=== PATIENT | male | born 1950 | race Caucasian/White ===

== ENCOUNTER → 2024-12-22 | Outpatient (CLI) | payer MEDICARE, SELFPAY ==
--- NOTE | 2024-12-22 14:31 | XR_ITS ---
Examination: AP pelvis single view TECHNIQUE: AP portable supine pelvis single view Exam date and time: December 22, 2024 1448 hours INDICATIONS: Hip pain several years. FINDINGS: Severe osteopenia Old healed right hip fracture Mild to moderate narrowing hip joints bilaterally No hip or pelvic fracture IMPRESSION: Mild to moderate narrowing hip joints bilaterally
--- NOTE | 2024-12-22 14:31 | XR_ITS ---
Examination: Lumbar spine, 5 views Technique: Lumbar spine AP, lateral, coned lateral lower lumbar spine, bilateral obliques 5 views Exam date and time: December 22, 2024 1501 hours INDICATIONS: Low back pain several years. FINDINGS: Severe osteopenia Prominent lumbar spondylosis Mild chronic osteoporotic compressions L3, L2, L1 No acute lumbar fracture Moderate to advanced degenerative disc disease L4-L5, L5-S1 IMPRESSION: Severe osteopenia Mild chronic osteoporotic compressions L1, L2, L3 Moderate to advanced degenerative disc disease L4-L5, L5-S1
--- NOTE | 2024-12-22 14:31 | XR_ITS ---
EXAMINATION: Cervical spine, 5 views Technique: Cervical spine AP, AP odontoid, lateral, bilateral obliques, 5 views Exam date and time: December 22, 2024 at 1423 hours INDICATIONS: Neck pain several years. FINDINGS: Comparison May 31, 2022 Prominent osteopenia No cervical fracture Intact odontoid Advanced degenerative disc disease C6-C7 The oblique films are suboptimal IMPRESSION: Advanced degenerative disc disease C6-C7
== END | disposition home or self-care (01) ==
LOC: CDIM 14:22
PROVIDERS: Referring Provider Orthopaedic Surgery; Visit Provider Orthopaedic Surgery
DX: M25.852 Other specified joint disorders, left hip (principal); M25.851 Other specified joint disorders, right hip; M85.88 Other specified disorders of bone density and structure, other site; M81.8 Other osteoporosis without current pathological fracture; M51.360 Other intervertebral disc degeneration, lumbar region with discogenic back pain only; M51.370 Other intervertebral disc degeneration, lumbosacral region with discogenic back pain only; M50.323 Other cervical disc degeneration at C6-C7 level
CPT/HCPCS: 72050; 72110; 72170

== ENCOUNTER 2025-01-08 11:02 | Emergency (ER) | payer MEDICARE, OTHER, SELFPAY ==
[2025-01-08 11:03] VITALS: BMI 18.1
--- NOTE | 2025-01-08 11:11 | EKG_ITS ---
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
[2025-01-08 11:13] VITALS: BP 155/78; PULSE 62; RESP 19; TEMP 36.9; O2SAT 94; BMI 18.1
--- NOTE | 2025-01-08 11:42 | XR_ITS ---
Examination: Right knee 2 views Technique one AP lateral right knee 2 views Date and time: January 08, 2025 1205 hours INDICATIONS: Patient fell today with injury to the knee, knee pain. FINDINGS: No fracture or dislocation No foreign body IMPRESSION: No fracture or dislocation
--- NOTE | 2025-01-08 11:42 | XR_ITS ---
Examination: CT brain head without contrast. 2-D sagittal coronal reconstructions Date and time of exam:January 08, 2025 1149 hours Comparison November 09, 2022 INDICATIONS: Patient fell today with injury to the head, head pain CTDI: vol (mGy):66.7 DLP: (mGycm):1565 Technique: Multiple CT axial sections of the brain have been obtained, 5 mm slice thickness. Contrast has not been administered. 2-D sagittal, coronal reconstructions have been obtained Low dose protocols were performed. One or more of the following dose reduction techniques were used; automated exposure control, adjustment of the mA and/or KV according to patient size, use of iterative reconstruction technique. Findings: No significant ventricular enlargement. Intra-axial or extra-axial hemorrhage density is not seen. No mass effect or midline shift Basal cisterns are not remarkable. Fourth ventricle is midline. Cranial vault intact. Impression: Numerous artifacts degrade image quality No interval acute hemorrhage, mass effect or midline shift
--- NOTE | 2025-01-08 11:42 | XR_ITS ---
Examination:Right hip AP, lateral, AP pelvis 3 views Technique: Hip AP lateral, AP pelvis, 3 views Exam date and time:January 08, 2025 1153 hours INDICATIONS: Patient fell today with into the right hip, right hip pain. FINDINGS: Old healed right hip fracture No acute right hip fracture no hip dislocation Left hip bones of the pelvis intact IMPRESSION: No acute hip or pelvic fracture.
--- NOTE | 2025-01-08 11:44 | EDNOTE_ITS ---
ED General RME/HPI General Chief complaint: Weakness Stated complaint: CAN'T WALK & FELL ON R SIDE OF BODY TODAY Time Seen by Provider: 01/08/25 11:25 Arrival date/time: 01/08/25 11:02 RME / HPI RME / HPI narrative: 74 years old male was brought in for evaluation regarding fall. Patient sustained a ground-level fall this morning, complaining of pain to the right knee severity mild. Patient does not remember if he hit his head. Denies any fever denies any other complaints no medication was taken prior to arrival. Related Data Home Medications ?Medication ?Instructions ?Recorded ?Confirmed albuterol sulfate 90 mcg/actuation inhalation 11/05/22 aerosol inhaler gabapentin 100 mg capsule 100 mg PO 2XD 11/05/2211/07 (Neurontin) hydrocodone 5 mg-acetaminophen 325 tab 11/05/22 mg tablet paroxetine HCl 20 mg tablet mg PO 11/05/22 tamsulosin 0.4 mg capsule (Flomax) 0.4 mg PO 1XD 11/0711/07/22 Allergies Allergy/AdvReac Type Severity Reaction Status Date / Time No Known Allergies Allergy Verified 01/08/25 11:10 Review of Systems Review of Systems Narrative Review of Systems: Review of system reviewed and within normal limits except mentioned in HPI ED Exam Narrative Physical exam: VITAL SIGNS: Reviewed. GENERAL APPEARANCE: Alert and interactive, follows commands, no acute distress, HEAD AND FACE: Non-traumatic. ENT: PERRL, pale conjunctiva, eyelid no trauma, Mucous membrane moist. NECK: Supple, nontender, no nuchal rigidity. CHEST: No tenderness, no crepitus, no paradoxical movement, no retractions. LUNGS: Clear, well ventilated, symmetric, no rales, no wheezing, no ronchi, no stridor, good breath sounds bilaterally. HEART: Regular rate, regular rhythm, no murmur, no gallops. ABDOMEN: Soft, positive bowel sounds, nondistended, no guarding, nontender, no rebound, no masses, RECTAL: Deferred. GENITAL: Deferred. NEUROLOGICAL: Gross motor function intact sensory function intact, Appropriate for age. MUSCULOSKELETAL: low back nontender, full range of motion. EXTREMITIES: Right knee contusion swelling tenderness no deformity no crepitus, full range of motion. SKIN: Color pink, dry, no rash, no lacerations, no abrasions, no contusions. LYMPHATICS: Deferred. Course Quality Measures none Orders Category Date Time Status EKG (ED ONLY) *Do not use* NOW Care 01/08/25 11:[address] head/brain wo con Stat Exams 01/08/25 11:42 Completed EKG (ED Only) Stat Exams 01/08/25 11:11 Draft XR hip RT w pelvis 2-3V Stat Exams 01/08/25 11:42 Completed XR knee limited RT 2V Stat Exams 01/08/25 11:42 Completed CBC [CBC] Stat Lab 01/08/25 12:15 Completed CMP [Comprehensive Metabolic Panel] Stat Lab 01/08/25 12:15 Completed UA, C/S IF [Urinalysis, C/S if Indicated] Stat Lab 01/08/25 12:46 Completed Acetaminophen Tab [Tylenol ES Tab] Med 01/08/25 11:43 Discontinued 1,000 mg PO X1 ONE Vital Signs Vital signs: Vital Signs Temperature 98.5 F 01/08/25 11:13 Pulse Rate 62 01/08/25 11:13 Respiratory Rate 19 01/08/25 11:13 Blood Pressure 155/78 H 01/08/25 11:13 Pulse Oximetry (%) 94 L 01/08/25 11:13 Oxygen Delivery Method Room Air 01/08/25 11:13 Discharge Plan Plan Patient Disposition: HOME (Self Care) Discharge Disposition comment: stable Prescriptions/Referrals Prescriptions/Med Rec: No Action hydrocodone-acetaminophen 5-325 mg tablet Patient Comments: TAKE 1 TABLET BY MOUTH EVERY 6 HOURS NEEDED FOR LOW BACK PAIN FOR 30 DAYS paroxetine HCl 20 mg tablet PO Patient Comments: TAKE 1 TABLET BY MOUTH ONCE DAILY AT BEDTIME gabapentin [Neurontin] 100 mg capsule 100 mg PO 2XD Patient Comments: TAKE 1 CAPSULE BY MOUTH THREE TIMES DAILY FOR 30 DAYS albuterol sulfate 90 mcg/actuation HFA aerosol inhaler INHALATION Patient Comments: INHALE 1 PUFF BY MOUTH EVERY 4 HOURS NEEDED FOR SHORTNESS OF BREATH FOR WHEEZING FOR COUGH SPELLS tamsulosin [Flomax] 0.4 mg Capsule 0.4 mg PO 1XD Referrals: No Primary/Family,Physician [Primary Care Provider] - In 1 week Problem List Clinical Impression: Knee pain, Fall Patient/Caregiver Discharge Instructions Education Materials: ED RICE Additional Instructions: Thank you for the opportunity for serving you today. You are stable for discharged . You are advised to: Follow-up with your PCP in 1 to 2 days Return to ED for worsening of symptoms Increase oral fluids Take [id number] Tylenol as needed for pain Print Language: Urdu Stand Alone Forms: Arabella Award Info., Patient Portal Info Letter MOY/KATHERYN Supervising Physician SYLVIA Supervising Physician: MD Idania MDM Narrative [facility] hospital course: 74 years old male was brought in for evaluation regarding fall. Patient sustained a ground-level fall this morning, complaining of pain to the right knee severity mild. Patient does not remember if he hit his head. Denies any fever denies any other complaints no medication was taken prior to arrival. CT scan of the head came back unremarkable x-ray pelvis came back unremarkable x-ray of the knee came back unremarkable laboratory workup also came back unremarkable results discussed with the patient. Patient stable for discharge home. Labs/Rad/Tests considered, not Ordered Describe details: None Medication Administration(s) Medication Administration History Discontinued Medications Acetaminophen (Acetaminophen 500 Mg Tablet) 1,000 mg PO X1 ONE Stop: 01/08/25 11:44 Last Admin: 01/08/25 12:36 Dose: 1,000 mg Documented By: DONALD Diagnosis Differential diagnosis: Knee fracture knee sprain knee dislocation status post fall Most likely dx, and/or detailed dx discussion: Knee pain status post fall
[2025-01-08 12:28] LABS: Basophils % (Auto) 1 % (0-2.5); Eosinophils # (Auto) 0.2 Thou/mm3 (0.0-0.5); Eosinophils % (Auto) 3 % (0-10); Hematocrit 37.7 % (41.0-53.0); Hemoglobin 12.7 g/dL (13.5-16.0); Immature Granulocytes % (Auto) 0 % (0-0); Immature Granulocytes Auto 0.01 Thou/mm3 (0.00-0.00); Lymphocytes # (Auto) 1.3 Thou/mm3 (1.0-4.8); Lymphocytes % (Auto) 20 % (10-50); Mean Corpuscular HGB Conc 33.7 g/dl (31.0-37.0); Mean Corpuscular Hemoglobin 30.8 pg (25.0-35.0); Mean Corpuscular Volume 92 fL (80-100); Monocytes # (Auto) 0.6 Thou/mm3 (0.0-0.8); Monocytes % (Auto) 10 % (0-12); Neutrophils # (Auto) 4.2 Thou/mm3 (1.8-7.7); Neutrophils % (Auto) 67 % (37-80); Nucleated Red Blood Cell % 0 /100 WBC (0); Platelet Count 235 Thou/mm3 (140-440); RDW Standard Deviation 45.9 fL (35.1-43.9); Red Blood Count 4.12 Miln/mm3 (4.50-5.90); White Blood Count 6.2 Thou/mm3 (3.8-10.6)
[2025-01-08] MEDS: ACETAMINOPHEN 500 MG TABLET 1000 MG PO (12:36)
[2025-01-08 12:51] LABS: Collection Type, Urine Clean Catch
[2025-01-08 12:56] LABS: Bilirubin,Urine Negative (Negative); Blood,Urine Negative (Negative); Clarity,Urine Clear (Clear/Hazy); Color,Urine Yellow (Lt Yel-Yel); Culture Indicated,Urine Not Indicated; Glucose, Urine Negative (Negative); Ketones,Urine Negative (Negative); Leukocyte Esterase,Urine Negative (Negative); Nitrite,Urine Negative (Negative); PH,Urine 6.5 (5.0-7.0); Protein,Urine Negative (Neg - Trace); RBC,Urine 2 /hpf (0-3); Specific Gravity,Urine 1.019 (1.001-1.035); Squamous Epithelial Cell,Urine < 1 /hpf (0-5); WBC,Urine 2 /hpf (0-5)
[2025-01-08 13:01] LABS: Alanine Aminotransferase < 7 U/L (10-49); Albumin, Serum 3.9 gm/dL (3.4-4.8); Albumin/Globulin Ratio 1.4 (1.2-2.2); Alkaline Phosphatase 84 U/L (46-116); Anion Gap 6 (7-16); Aspartate Amino Transferase 12 U/L (0-34); BUN/Creatinine Ratio 11 Ratio (12-20); Bilirubin,Total 1.1 mg/dL (0.3-1.2); Blood Urea Nitrogen 10 mg/dL (9-23); Calcium 8.5 mg/dL (8.3-10.6); Calcium (Corrected) 8.6 mg/dL (8.5-10.1); Carbon Dioxide 32.9 mMol/L (20.0-31.0); Chloride 105 mMol/L (98-107); Creatinine (Component) 0.9 mg/dL (0.6-1.3); Globulin 2.7 gm/dL (2.3-3.5); Glucose 89 mg/dL (74-106); Osmolality,Calculated 284 (275-295); Sodium 144 mMol/L (136-145); Total Protein 6.6 gm/dL (5.7-8.2); eGFR > 60 See Note
== END 2025-01-08 14:00 | disposition home or self-care (01) ==
PROVIDERS: Nurse Practitioner Family; Emergency Provider Family Medicine
DX: S89.91XA Unspecified injury of right lower leg, initial encounter (principal); S09.90XA Unspecified injury of head, initial encounter; M25.551 Pain in right hip; R00.1 Bradycardia, unspecified; I49.1 Atrial premature depolarization; W18.30XA Fall on same level, unspecified, initial encounter
CPT/HCPCS: 36415; 70450; 73502; 73560; 80053; 81001; 85025; 93005; 99284; A9270

== ENCOUNTER 2025-01-17 02:07 | Inpatient (IN) | payer OTHER, MEDICARE, SELFPAY ==
[2025-01-17] VITALS (21 sets, daily range): BP systolic 132–178; BP diastolic 72–108; PULSE 68–85; RESP 7–88; TEMP 36.5–37.1; O2SAT 89–99; BMI 16.9; BMI 18.9
--- NOTE | 2025-01-17 02:25 | XR_ITS ---
Examination: CT lumbar spine, without contrast. 2-D sagittal reconstructions. 2-D coronal reconstructions. 3-D reconstructions. Date and time of exam: January 17, 2025 0401 hours INDICATIONS: Onset generalized back pain this week CTDI: vol (mGy):21 DLP: (mGycm):625 Technique: Multiple 1.25 mm axial sections of the lumbar spine without intravenous contrast have been obtained. 2-D sagittal and coronal reconstructions have been obtained. 3-D reconstructions have been obtained. Low dose protocols were performed. One or more of the following dose reduction techniques were used; automated exposure control, adjustment of the mA and/or KV according to patient size, use of iterative reconstruction technique. Findings: Severe osteopenia No acute lumbar fracture Chronic osteoporotic wedging L3, L4 Lumbar pedicles, laminae, transverse and posterior spinous processes intact Grade 1 spondylolisthesis L5 on S1 with advanced instrument posteriorly at the L5-S1 level L5-S1 grade 1 spondylolisthesis produces severe left and mild right L5 ganglionic compression L4-L5 3 mm central lumbar disc bulge More cephalad levels unremarkable IMPRESSION: Severe osteopenia Chronic osteoporotic wedging L3, L4 Advanced degenerative disc disease L5-S1 L5-S1 grade 1 spondylolisthesis producing severe left and mild right L5 ganglionic compression L4-L5 3 mm central lumbar disc bulge
--- NOTE | 2025-01-17 02:25 | XR_ITS ---
Examination: CT thoracic spine, without contrast. 2-D sagittal reconstructions. 2-D coronal reconstructions. 3-D reconstructions. Date and time of exam:January 17, 2025 0401 hours INDICATIONS: Back pain this week CTDI: vol (mGy):21 DLP: (mGycm):833 Technique: Multiple 1.25 mm axial sections of the thoracic spine without intravenous contrast have been obtained. 2-D sagittal and coronal reconstructions have been obtained. 3-D reconstructions have been obtained. Low dose protocols were performed. One or more of the following dose reduction techniques were used; automated exposure control, adjustment of the mA and/or KV according to patient size, use of iterative reconstruction technique. Findings: Severe osteopenia No acute thoracic fracture Mild diffuse thoracic disc narrowing Thoracic pedicles, laminae, transverse and posterior spinous processes intact IMPRESSION: No acute thoracic fracture. Mild diffuse thoracic degenerative disc disease
--- NOTE | 2025-01-17 02:25 | XR_ITS ---
Examination: CT brain head without contrast. 2-D sagittal coronal reconstructions Date and time of exam:January 17, 2025 at 0353 hours INDICATIONS: Altered mental status today COMPARISON: January 08, 2025 CTDI: vol (mGy):80 DLP: (mGycm):427 Technique: Multiple CT axial sections of the brain have been obtained, 5 mm slice thickness. Contrast has not been administered. 2-D sagittal, coronal reconstructions have been obtained Low dose protocols were performed. One or more of the following dose reduction techniques were used; automated exposure control, adjustment of the mA and/or KV according to patient size, use of iterative reconstruction technique. Findings: No significant ventricular enlargement. Intra-axial or extra-axial hemorrhage density is not seen. No mass effect or midline shift Basal cisterns are not remarkable. Fourth ventricle is midline. Cranial vault intact. Significant ethmoid sinusitis Impression: Negative for acute hemorrhage, mass effect or midline shift Advise clinical correlation follow up accordingly
--- NOTE | 2025-01-17 02:25 | PD.EDBACK ---
ED Back Injury Pain RME/HPI General Chief Complaint: Back Pain/Injury Stated Complaint: LOWER BACK HIP PAIN Time Seen by Provider: 01/17/25 02:24 Arrival date/time: 01/17/25 02:07 RME / HPI RME / HPI Narrative: This section includes all my notes and documentations, including HPI, PE, and ED course. Simon Burns MD HPI: 74 y/o male with Hx of Dementia here with severe back pain. Can't obtain any history from the patient due to severe dementia. ROS: Patient obtain from the patient due to severe dementia. Physical Exam: General: Alert. In severe pain, yelling that his back hurts. Eyes: Conjunctivae and lids clear. ENT: No nasal congestion. Neck: Supple. Heart: RRR. Lungs: No respiratory distress. Good air movement. No significant rhonchi, wheezing, rales. Abdomen: Soft with equivocal tenderness, difficult to localize. Yells in pain with any palpation or movement. Normal bowel sounds. No distension. No rebound or guarding. Back: Yells in pain with any palpation or movement. Suboptimal exam. Skin: Warm and dry. Neuro: Alert and oriented X 1. No obvious peripheral motor deficits. I reviewed EMS notes. I reviewed diagnostic test results: Blood test unremarkable. CT reports pending. Treatment here included: Dilaudid, Zofran, IV fluid. Obvious significant improvement noted. At 6 AM on 01/17/2025, the care of the patient was transferred to Dr Osuna. Simon Burns MD Related Data Home Medications ?Medication ?Instructions ?Recorded ?Confirmed albuterol sulfate 90 mcg/actuation inhalation 11/05/22 aerosol inhaler gabapentin 100 mg capsule 100 mg PO 2XD 11/05/22 11/07/22 (Neurontin) hydrocodone 5 mg-acetaminophen 325 tab 11/05/22 mg tablet paroxetine HCl 20 mg tablet mg PO 11/05/22 tamsulosin 0.4 mg capsule (Flomax) 0.4 mg PO 1XD 11/07/22 11/07/22 Allergies Allergy/AdvReac Type Severity Reaction Status Date / Time No Known Allergies Allergy Verified 01/17/25 02:09 Review of Systems Review of Systems ROS Unobtainable: unobtainable due to medical condition (Dementia) Past Medical History Past Medical History NEUROLOGIC: Positive Dementia Social History SMOKING STATUS: Current some day smoker ED Exam Narrative Physical exam: Refer to HPI above Course Quality Measures none Orders Category Date Time Status Saline [Insert IV] NOW Care 01/17/25 02:[address] chest abdomen pelvis wo Stat Exams 01/17/25 02:[address] head/brain wo con Stat Exams 01/17/25 02:[address] lumbar spine wo con Stat Exams 01/17/25 02:[address] thoracic spine wo con Stat Exams 01/17/25 02:25 Taken Amylase Stat Lab 01/17/25 02:28 Completed Bilirubin,Direct Stat Lab 01/17/25 02:28 Completed CBC Stat Lab 01/17/25 02:28 Completed CMP [Comprehensive Metabolic Panel] Stat Lab 01/17/25 02:28 Completed Free T4 (Free Thyroxine) Stat Lab 01/17/25 02:28 Completed Lipase Stat Lab 01/17/25 02:28 Completed Magnesium Stat Lab 01/17/25 02:28 Completed TSH [Thyroid Stimulating Hormone] Stat Lab 01/17/25 02:28 Completed HYDROmorphone INJ [Dilaudid Inj] Med 01/17/25 02:25 Discontinued 1 mg IVP X1 ONE Ondansetron Inj [Zofran Inj] Med 01/17/25 02:25 Discontinued 4 mg IVP X1 ONE Sodium Chloride 0.9% 1000 ml [Ns] 1,000 ml Med 01/17/25 02:25 Discontinued IV 999 mls/hr Vital Signs Vital signs: Vital Signs Temperature 98.2 F 01/17/25 02:15 Pulse Rate 68 01/17/25 02:15 Respiratory Rate 19 01/17/25 02:15 Blood Pressure 178/96 H 01/17/25 02:15 Pulse Oximetry (%) 91 L 01/17/25 02:15 Oxygen Delivery Method Room Air 01/17/25 02:15 Back Pain / Injury MDM Narrative MDM Narrative:: Scribe Attestation: Shadia Ledezma am scribing for and in the presence of Dr. Burns. Provider Notation: Although this document has been carefully reviewed, there may still be some phonetic and other typographical errors.? These errors are purely grammatical due to imperfections in the software program and should not be construed in any way to? compromise the substance of the patient's medical care during this visit. 74 y/o male with Hx of Dementia here with severe back pain. Can't obtain any history from the patient due to severe dementia. Patient data External records reviewed:: [facility] previous records (Reviewed prior ED records from 01/08/25. Patient was seen for Fall.) and EMS form Clinical information provided by:: EMS Social determinants that could affect healthcare access:: mental health (Dementia) Patient has the following chronic illnesses:: Dementia How is presenting disease/condition affected by chronic disease/condition?: uneffected by Evaluation data The following diagnostics were reviewed and interpreted by me:: lab results and radiology exam(s) Lab and/or radiology exams considered but not ordered:: None Interpretation Summary: Blood tests unremarkable. CT reports pending. Medications / Prescriptions Medications or Prescriptions considered but not ordered:: None Medication administrations:: Medication Administration History Discontinued Medications Hydromorphone HCl (Hydromorphone Inj 2 Mg/Ml Vial) 1 mg IVP X1 ONE Stop: 01/17/25 02:26 Last Admin: 01/17/25 03:02 Dose: 1 mg Documented By: TETO Sodium Chloride (Ns) 1,000 mls @ 999 mls/hr IV .Q1H1M ONE Stop: 01/17/25 03:25 Last Infusion: 01/17/25 05:26 Dose: Infused Documented By: Admin: 01/17/25 03:03 Dose: 999 mls/hr Documented By: TETO Ondansetron HCl (Ondansetron Inj 2 Mg/Ml Inj 2 Ml) 4 mg IVP X1 ONE; Protocol Stop: 01/17/25 02:26 Last Admin: 01/17/25 03:01 Dose: 4 mg Documented By: TETO Dilaudid, Zofran, IV fluid. Consultations Consultation(s) initiated? (list below): No Diagnosis Differential diagnosis back pain/injury: lumbar radiculopathy, sciatica, strain of lumbar region, renal colic, pyelonephritis, thoracic back pain, AAA and discitis Most likely diagnosis given after review of the tests above:: Complete diagnostic test results are pending. Admission Indicated Admission indicated?: not indicated Explain why admission is indicated or not indicated:: Complete diagnostic test results are pending. Admission Request Was there a request for admission?: No Disposition Plan Disposition Plan: other (specify) (Care of the patient was transferred to Dr Osuna.) Discharge Plan Prescriptions/Referrals Prescriptions/Med Rec: No Action hydrocodone-acetaminophen 5-325 mg tablet Patient Comments: TAKE 1 TABLET BY MOUTH EVERY 6 HOURS NEEDED FOR LOW BACK PAIN FOR 30 DAYS paroxetine HCl 20 mg tablet PO Patient Comments: TAKE 1 TABLET BY MOUTH ONCE DAILY AT BEDTIME gabapentin [Neurontin] 100 mg capsule 100 mg PO 2XD Patient Comments: TAKE 1 CAPSULE BY MOUTH THREE TIMES DAILY FOR 30 DAYS albuterol sulfate 90 mcg/actuation HFA aerosol inhaler INHALATION Patient Comments: INHALE 1 PUFF BY MOUTH EVERY 4 HOURS NEEDED FOR SHORTNESS OF BREATH FOR WHEEZING FOR COUGH SPELLS tamsulosin [Flomax] 0.4 mg Capsule 0.4 mg PO 1XD Referrals: Gonzalez Zuniga MD [Primary Care Provider] - In 1 week Problem List Clinical Impression: Back pain Patient/Caregiver Discharge Instructions Print Language: German
--- NOTE | 2025-01-17 02:26 | XR_ITS ---
Examination: CT chest, without intravenous contrast. CT abdomen, without intravenous contrast. CT pelvis, without intravenous contrast. 2-D sagittal and coronal reconstructions. 3-D reconstructions. Date and time of exam:January 17, 2025 0356 hours INDICATIONS: Chest and abdominal pain today CTDI vol (mgy) 5 DLP (MGycm)421 Technique: Multiple CT images, 3.0 mm slice thickness, obtained chest, abdomen, pelvis, with the high-resolution 64 slice scanner.. Sagittal and coronal 2-D reconstructions are obtained. 3-D reconstructions Low dose protocols were performed. One or more of the following dose reduction techniques were used; automated exposure control, adjustment of the mA and/or KV according to patient size, use of iterative reconstruction technique. Findings: No thoracic aortic aneurysmal dilatation Main pulmonary artery segment 35 mm Mild enlargement left atrium and left ventricle No paratracheal tracheobronchial or bronchopulmonary adenopathy Mild vascular congestion Pneumonia both bases, mild with small pleural effusions 12 mm right lobe liver cyst Gallstones Splenic calcifications No pancreatic or adrenal mass Moderate renal parenchymal scar formation Mediolateral dimension of the abdominal aorta 2.7 cm No bowel obstruction No pericecal inflammatory change Right inguinal hernia containing colon but no incarcerated bowel Left inguinal hernia containing small bowel but no incarcerated bowel Prostatomegaly 5.6 cm Urinary bladder wall thickening up to 8 mm Severe osteopenia IMPRESSION: Pulmonary artery hypertension Mild bibasilar pneumonia Moderate renal parenchymal scar formation Right inguinal hernia containing colon but no incarcerated bowel Left inguinal hernia containing small bowel but no incarcerated bowel Negative for bowel obstruction Significant prostatomegaly Urinary bladder wall thickening up to 8 mm, consider cystitis, early urinary tract outflow obstruction secondary to the prostatomegaly
--- NOTE | 2025-01-17 03:00 | PC.NURSE ---
Pt BIBA with c/o Right lower back pain, pt rates pain 8/10 at this time, pt is A/O x 2, pt is noted to have limited movement to R leg due to pain, per patient 's the pt had a ground level fall on his right side within the past week.
[2025-01-17] MEDS: ONDANSETRON INJ 2 MG/ML INJ 2 ML 4 MG IVP (03:01)
[2025-01-17] MEDS: HYDROmorphone INJ 2 MG/ML VIAL 1 MG IVP (03:02)
[2025-01-17] MEDS: SODIUM CHLORIDE 0.9% 1000 ML 1,000 ML 999 ML IV (03:03)
[2025-01-17 03:27] LABS: Basophils # (Auto) 0.1 Thou/mm3 (0.0-0.2); Basophils % (Auto) 1 % (0-2.5); Eosinophils # (Auto) 0.2 Thou/mm3 (0.0-0.5); Eosinophils % (Auto) 3 % (0-10); Hematocrit 38.6 % (41.0-53.0); Immature Granulocytes % (Auto) 0 % (0-0); Immature Granulocytes Auto 0.02 Thou/mm3 (0.00-0.00); Lymphocytes # (Auto) 1.4 Thou/mm3 (1.0-4.8); Lymphocytes % (Auto) 17 % (10-50); Mean Corpuscular HGB Conc 33.7 g/dl (31.0-37.0); Mean Corpuscular Hemoglobin 31.6 pg (25.0-35.0); Mean Corpuscular Volume 94 fL (80-100); Monocytes # (Auto) 0.7 Thou/mm3 (0.0-0.8); Monocytes % (Auto) 8 % (0-12); Neutrophils # (Auto) 5.8 Thou/mm3 (1.8-7.7); Neutrophils % (Auto) 72 % (37-80); Nucleated Red Blood Cell % 0 /100 WBC (0); Platelet Count 254 Thou/mm3 (140-440); RDW Standard Deviation 45.3 fL (35.1-43.9); Red Blood Count 4.12 Miln/mm3 (4.50-5.90); White Blood Count 8.1 Thou/mm3 (3.8-10.6)
[2025-01-17 04:01] LABS: Alanine Aminotransferase < 7 U/L (10-49); Albumin, Serum 3.9 gm/dL (3.4-4.8); Albumin/Globulin Ratio 1.6 (1.2-2.2); Alkaline Phosphatase 87 U/L (46-116); Amylase < 20 U/L (30-118); Anion Gap 10 (7-16); Aspartate Amino Transferase 11 U/L (0-34); BUN/Creatinine Ratio 12 Ratio (12-20); Bilirubin,Direct 0.5 mg/dL (0.0-0.3); Bilirubin,Total 1.3 mg/dL (0.3-1.2); Blood Urea Nitrogen 11 mg/dL (9-23); Calcium 8.6 mg/dL (8.3-10.6); Calcium (Corrected) 8.7 mg/dL (8.5-10.1); Carbon Dioxide 30.5 mMol/L (20.0-31.0); Chloride 105 mMol/L (98-107); Creatinine (Component) 0.9 mg/dL (0.6-1.3); Free T4 (Free Thyroxine) 1.32 ng/dL (0.89-1.76); Globulin 2.4 gm/dL (2.3-3.5); Glucose 99 mg/dL (74-106); Lipase 26 U/L (12-53); Magnesium 1.8 mg/dL (1.6-2.6); Osmolality,Calculated 288 (275-295); Potassium 3.8 mMol/L (3.4-5.1); Sodium 145 mMol/L (136-145); Thyroid Stimulating Hormone 2.36 uIU/mL (0.55-4.78); Total Protein 6.3 gm/dL (5.7-8.2); eGFR > 60 See Note
--- NOTE | 2025-01-17 06:32 | PD.EDADDENDU ---
Emergency Room Addendum Addendum Narrative: 0600: Care assumed by previous shift provider. Past medical, surgical, social and family history reviewed. Vitals and home medications reviewed. Results and treatment plan discussed. I will assume the care of the patient at this time and will follow the patient, pending final disposition.
--- NOTE | 2025-01-17 07:00 | PC.NURSE ---
PT ON OXYGEN UPON ARRIVAL TO UNIT
[2025-01-17 08:46] LABS: Collection Type, Urine Clean Catch
[2025-01-17 09:03] LABS: Bilirubin,Urine Negative (Negative); Blood,Urine Negative (Negative); Clarity,Urine Clear (Clear/Hazy); Color,Urine Yellow (Lt Yel-Yel); Glucose, Urine Negative (Negative); Ketones,Urine 1+ (Negative); Leukocyte Esterase,Urine Negative (Negative); Nitrite,Urine Negative (Negative); PH,Urine 6.5 (5.0-7.0); Protein,Urine Negative (Neg - Trace); RBC,Urine 5 /hpf (0-3); Squamous Epithelial Cell,Urine < 1 /hpf (0-5); Urobilinogen,Urine Negative mg/dL (0.0-1.0); WBC,Urine < 1 /hpf (0-5)
[2025-01-17 09:06] LABS: Sperm,Urine Present
[2025-01-17] MEDS: HYDROcodone/APAP 5/325 TABLET 1 TAB PO (10:15)
[2025-01-17] MEDS: DOXYCYCLINE 100 MG TABLET PO (11:15)
[2025-01-17] MEDS: cefTRIAXone/D5w 1gm IV premix 1 GM/50 ML BAG IV (11:15)
--- NOTE | 2025-01-17 11:18 | PD.EDADDENDU ---
Emergency Room Addendum Addendum Narrative: 0600: Care assumed by previous shift provider. Past medical, surgical, social and family history reviewed. Vitals and home medications reviewed. Results and treatment plan discussed. I will assume the care of the patient at this time and will follow the patient, pending final disposition. 1000: Patient evaluated for ongoing low back pain, reportedly present since prior hip injury. Spoke with patient's , who confirms that the pain has remained unchanged. Patient followed by ortho Dr. Munoz and has not been prescribed pain medications. Pain is currently limiting mobility; patient is normally ambulatory with a walker but is now unable to get out of bed due to discomfort. While MRI follow-up is in place with Dr. Munoz, is concerned he may be unable to cooperative due to pain. Plan to discharge with a low-dose pain regimen and Colace for chronic constipation. 1045: I again spoke with the patients . Reports he has hx of a chronic cough related to COPD, which may have worsened over the past two weeks though questionable. No fever, new cough, or shortness of breath reported. Patient continues to smoke and expressed interest in smoking cessation. During ED course, the patients oxygen saturations have been as long as low as 84?85% with a good waveform, on room air. Improving to 87?88%. On 0.5L nasal cannula, saturation 92-94%. Chest/abdomen/pelvis CT shows bibasilar pneumonia. Rocephin and Doxycycline orderd. EMR was reviewed which shows similar O2 sats during prior hospitalization for hip fracture in 2022. O2 sats were as low as 88% and remained around 90?91% during admission. Unknown whether patient has ever been formally placed on [facility]. expressed and is leaning towards shelter placement. Will consult with ED physician locums urgent care. design coordinator reports the [facility] would [facility] placement but may require admission. 1300: I spoke with resident working with [facility]. Discussed patients PMHx, HPI, ED course, exam findings, labs, and radiology results. Patient accepted for admission. Diagnosis: Hypoxia, pneumonia, chronic low back pain Disposition: Admission RADIOLOGY Ordering Physician: Simon Burns MD Date of Service: 01/17/25 Procedure(s): CT head/brain wo con Accession Number(s): [id number] cc: Simon Burns MD; Shabbir Ching MD; Gonzalez Zuniga MD~ Examination: CT brain head without contrast. 2-D sagittal coronal reconstructions Date and time of exam:January 17, 2025 at 0353 hours INDICATIONS: Altered mental status today COMPARISON: January 08, 2025 CTDI: vol (mGy):80 DLP: (mGycm):427 Technique: Multiple CT axial sections of the brain have been obtained, 5 mm slice thickness. Contrast has not been administered. 2-D sagittal, coronal reconstructions have been obtained Low dose protocols were performed. One or more of the following dose reduction techniques were used; automated exposure control, adjustment of the mA and/or KV according to patient size, use of iterative reconstruction technique. Findings: No significant ventricular enlargement. Intra-axial or extra-axial hemorrhage density is not seen. No mass effect or midline shift Basal cisterns are not remarkable. Fourth ventricle is midline. Cranial vault intact. Significant ethmoid sinusitis Impression: Negative for acute hemorrhage, mass effect or midline shift Advise clinical correlation follow up accordingly Dictated By:Shabbir Ching MD Signed By:<Electronically signed by Shabbir Ching MD in OV>01/17/25 0752 Ordering Physician: Simon Burns MD Date of Service: 01/17/25 Procedure(s): CT lumbar spine wo con Accession Number(s): [id number] cc: Simon Burns MD; Shabbir Ching MD; Gonzalez Zuniga MD~ Examination: CT lumbar spine, without contrast. 2-D sagittal reconstructions. 2-D coronal reconstructions. 3-D reconstructions. Date and time of exam: January 17, 2025 0401 hours INDICATIONS: Onset generalized back pain this week CTDI: vol (mGy):21 DLP: (mGycm):625 Technique: Multiple 1.25 mm axial sections of the lumbar spine without intravenous contrast have been obtained. 2-D sagittal and coronal reconstructions have been obtained. 3-D reconstructions have been obtained. Low dose protocols were performed. One or more of the following dose reduction techniques were used; automated exposure control, adjustment of the mA and/or KV according to patient size, use of iterative reconstruction technique. Findings: Severe osteopenia No acute lumbar fracture Chronic osteoporotic wedging L3, L4 Lumbar pedicles, laminae, transverse and posterior spinous processes intact Grade 1 spondylolisthesis L5 on S1 with advanced instrument posteriorly at the L5-S1 level L5-S1 grade 1 spondylolisthesis produces severe left and mild right L5 ganglionic compression L4-L5 3 mm central lumbar disc bulge More cephalad levels unremarkable IMPRESSION: Severe osteopenia Chronic osteoporotic wedging L3, L4 Advanced degenerative disc disease L5-S1 L5-S1 grade 1 spondylolisthesis producing severe left and mild right L5 ganglionic compression L4-L5 3 mm central lumbar disc bulge Dictated By:Shabbir Ching MD Signed By:<Electronically signed by Shabbir Ching MD in OV>01/17/25 0801 Ordering Physician: Simon Burns MD Date of Service: 01/17/25 Procedure(s): CT thoracic spine wo [facility] Accession Number(s): [id number] cc: Simon Burns MD; Shabbir Ching MD; Gonzalez Zuniga MD~ Examination: CT thoracic spine, without contrast. 2-D sagittal reconstructions. 2-D coronal reconstructions. 3-D reconstructions. Date and time of exam:January 17, 2025 0401 hours INDICATIONS: Back pain this week CTDI: vol (mGy):21 DLP: (mGycm):833 Technique: Multiple 1.25 mm axial sections of the thoracic spine without intravenous contrast have been obtained. 2-D sagittal and coronal reconstructions have been obtained. 3-D reconstructions have been obtained. Low dose protocols were performed. One or more of the following dose reduction techniques were used; automated exposure control, adjustment of the mA and/or KV according to patient size, use of iterative reconstruction technique. Findings: Severe osteopenia No acute thoracic fracture Mild diffuse thoracic disc narrowing Thoracic pedicles, laminae, transverse and posterior spinous processes intact IMPRESSION: No acute thoracic fracture. Mild diffuse thoracic degenerative disc disease Dictated By:Shabbir Ching MD Signed By:<Electronically signed by Shabbir Ching MD in OV>01/17/25 0758 Ordering Physician: Simon Burns MD Date of Service: 01/17/25 Procedure(s): CT chest abdomen pelvis wo Accession Number(s): [id number] cc: Simon Burns MD; Shabbir Ching MD; Gonzalez Zuniga MD~ Examination: CT chest, without intravenous contrast. CT abdomen, without intravenous contrast. CT pelvis, without intravenous contrast. 2-D sagittal and coronal reconstructions. 3-D reconstructions. Date and time of exam:January 17, 2025 0356 hours INDICATIONS: Chest and abdominal pain today CTDI vol (mgy) 5 DLP (MGycm)421 Technique: Multiple CT images, 3.0 mm slice thickness, obtained chest, abdomen, pelvis, with the high-resolution 64 slice scanner.. Sagittal and coronal 2-D reconstructions are obtained. 3-D reconstructions Low dose protocols were performed. One or more of the following dose reduction techniques were used; automated exposure control, adjustment of the mA and/or KV according to patient size, use of iterative reconstruction technique. Findings: No thoracic aortic aneurysmal dilatation Main pulmonary artery segment 35 mm Mild enlargement left atrium and left ventricle No paratracheal tracheobronchial or bronchopulmonary adenopathy Mild vascular congestion Pneumonia both bases, mild with small pleural effusions 12 mm right lobe liver cyst Gallstones Splenic calcifications No pancreatic or adrenal mass Moderate renal parenchymal scar formation Mediolateral dimension of the abdominal aorta 2.7 cm No bowel obstruction No pericecal inflammatory change Right inguinal hernia containing colon but no incarcerated bowel Left inguinal hernia containing small bowel but no incarcerated bowel Prostatomegaly 5.6 cm Urinary bladder wall thickening up to 8 mm Severe osteopenia IMPRESSION: Pulmonary artery hypertension Mild bibasilar pneumonia Moderate renal parenchymal scar formation Right inguinal hernia containing colon but no incarcerated bowel Left inguinal hernia containing small bowel but no incarcerated bowel Negative for bowel obstruction Significant prostatomegaly Urinary bladder wall thickening up to 8 mm, consider cystitis, early urinary tract outflow obstruction secondary to the prostatomegaly Dictated By:Shabbir Ching MD Signed By:<Electronically signed by Shabbir Ching MD in OV>01/17/25 0756
--- NOTE | 2025-01-17 12:05 | PC.CC ---
ED Security Incident Response Engineer contacted [facility] in efforts to coordinate insurance for possible admission. [employer] Control Chain Builder received notification ID # [id number] confirmation received from Raffy Torrez
[2025-01-17] MEDS: HEPARIN SOD INJ 5000 UNIT/ML VIAL SC ×2 (14:11→21:34)
--- NOTE | 2025-01-17 17:00 | ESHP_ITS ---
<Statement entered by Celeste Edwards MD - 01/19/25 02:17> Patient was seen and examined by me personally. I have directly supervised and reviewed documentation by the team resident and agree with its findings with any exceptions or additional findings as below. Plan of care was discussed with the attending, Dr. Alves. New admit today. Chris Zavala is a 74-year-old male with past medical history of hypertension, hyperlipidemia, COPD, PTSD, history of DVT in the right lower extremity and history of right hip surgery in 2022 who was brought in by ambulance on 01/17/2025 due to severe back pain for the past 3 days. Patient unable to give any meaningful history, A&O x2. who was contacted reports patient is at baseline mental status, but did have recent ground level falls and appeared weaker. ED workup which had included CT head, lumbar, thoracic, and chest/abdomen/pelvis did not show any pathologic fractures. Labs and vitals were stable, however had apparently been expressing inability to take the patient home. Patient was also expressing severe pain upon passive movement of his legs, likely acute on chronic advanced degenerative disc disease, and spinal stenosis and ganglionic compression as evidenced by the imaging. Patient was admitted and will be evaluated by PT for recommendations on possible placement versus return home with home health, as well as administration of IV pain control medications. Celeste Edwards, PGY-2 Documentation for date of: 01/17/25 HPI History of Present Illness History of present illness: Due to patient's altered mental status unable to obtain any history and patient does not have any caretakers or family members at bedside. Mr. Zavala is a 74-year-old male with past medical history significant for hypertension, hyperlipidemia, COPD, PTSD, history of DVT in the right lower extremity and history of right hip surgery in 2022 was brought in by ambulance due to severe back pain for the past 3 days. Majority of history is obtained from ED physician who interacted with patient's at bedside who also appears to be poor historian. Patient is only oriented to self he is able to recall his full name but is unable to remember his birthday where he is, what year it is, and cannot recall his 's name. Patient's was later contacted via phone to obtain further history who stated patient had a fall approximately 1 week ago on his right hip and hit his head. He was initially brought to the ED after the fall and CT scan showed no acute hemorrhage and imaging of the right hip showed no fracture. Over the course of several days after his fall a week ago patient progressively had worsening back pain and became bedbound and unable to move for the past 3 days. Patient follows orthopedic surgeon Dr. Munoz outpatient however and patient are unable to provide further information on what is pending. Although patient has long history of smoking and COPD he uses 2 inhalers at home does not use any home oxygen he has had a chronic due to COPD which has not worsened. Patient denies any chest pain palpitations or dizziness. Patient also denies any abdominal pain but continues to complain of severe back pain worse on the lateral right side. Patient's states he has had no difficulty having bowel movement or urination and denies any incontinence. ED course In the ED blood pressure was 178/96, pulse 68, respirations 19, saturating on room air Lab findings are within normal limits with the exception of total bilirubin of 1.3, direct bilirubin 0.5 Urinalysis is negative with the exception of urine RBC [address] of head: Negative for acute hemorrhage, mass effect or midline shift CT of lumbar spine: Severe osteopenia, Chronic osteoporotic wedging L3, L4, Advanced degenerative disc disease L5-S1, L5-S1 grade 1 spondylolisthesis producing severe left and mild right L5, ganglionic compression, L4-L5 3 mm central lumbar disc bulge CT thoracic spine: No acute thoracic fracture. Mild diffuse thoracic degenerative disc disease. CT chest/abdomen/pelvis: Pulmonary artery hypertension Mild bibasilar pneumonia Moderate renal parenchymal scar formation Right inguinal hernia containing colon but no incarcerated bowel Left inguinal hernia containing small bowel but no incarcerated bowel Negative for bowel obstruction Significant prostatomegaly Urinary bladder wall thickening up to 8 mm, consider cystitis, early urinary tract outflow obstruction secondary to the prostatomegaly In the ED patient received Dilaudid 1 mg x 1, hydroxycodone x 1, doxycycline 100 mg p.o. x 1, ceftriaxone 1 g x 1 PMH: Hypertension, hyperlipidemia, COPD, history of DVT, PTSD PSH: Right hip surgery in 2022 SH: Patient smokes half a pack of cigarette daily since the age of 11, denies alcohol or illicit drug use Home meds: Lisinopril, lovastatin, albuterol inhaler (Med rec pending for the remainder of medications) Review of Systems Review of Systems Systems Reviewed: All systems reviewed, normal except as documented Exam Vital Signs Temp Pulse Resp BP Pulse Ox O2 Del Method O2 Flow Rate 98.7 F 74 18 148/86 H 95 Nasal Cannula 2 01/17/25 14:58 01/17/25 15:39 01/17/25 15:39 01/17/25 14:58 01/17/25 15:39 01/17/25 14:58 01/17/25 15:39 Narrative Exam GENERAL: A&Ox1 . elderly male, Awake, saturating on room air NEURO: unable to asses due to pt's mentation HEENT: Atraumatic, Normocephalic. mucous membranes moist. Eyes open, symmetrical, & clear HEART: Normal Heart Sounds LUNGS: Clear to auscultation with no wheezing or crackles. ABDOMEN: soft, non-distended, non-tender, bowel sounds heard, no guarding or rebound tenderness SKIN: No Rash or ecchymoses EXTREMITIES: No edema, tenderness is present on palpation on right hip area, able to move all 4 extremities, pedal pulses palpated Results: Labs 01/19/25 04:50 01/19/25 04:50 Labs: Short CBC 01/17/25 Range/Units 02:28 WBC 8.1 (3.8-10.6) Thou/mm3 Hgb 13.0 L (13.5-16.0) g/dL Hct 38.6 L (41.0-53.0) % Plt Count 254 (140-440) Thou/mm3 BMP 01/17/25 02:28 Sodium 145 Potassium 3.8 Chloride 105 Carbon Dioxide 30.5 BUN 11 Creatinine 0.9 Glucose 99 Calcium 8.6 Liver Function 01/17/25 Range/Units 02:28 Total Bilirubin 1.3 H (0.3-1.2) mg/dL Direct Bilirubin 0.5 H (0.0-0.3) mg/dL AST 11 (0-34) U/L ALT < 7 L (10-49) U/L Alkaline Phosphatase 87 (46-116) U/L Albumin 3.9 (3.4-4.8) gm/dL Urine 01/17/25 Range/Units 08:11 Urine Color Yellow (Lt Yel-Yel) Urine Clarity Clear (Clear/Hazy) Urine pH 6.5 (5.0-7.0) Ur Specific [place]eda 1.020 (1.001-1.035) Urine Protein Negative (Neg - Trace) Urine Glucose (UA) Negative (Negative) Quality Measures Quality Measures none Advance care planning discussed with:: spouse Medications Home Medications and Allergies Home Medications ?Medication ?Instructions ?Recorded ?Confirmed ?Type albuterol sulfate 90 mcg/actuation 2 puff inhalation Q 6H PRN 11/05/22 01/17/25 History aerosol inhaler shortness of breath or wheez ing apixaban 5 mg tablet 5 mg PO BID 01/17/25 5 History Held on 01/19/25. Instructions: Resume on 02/02/25. Pt has history of provoked DVT and has completed anticoagulation for more than 6 months. Will hold until Pt sees his primary care for further decision on resuming it. fluorouracil 5 % topical cream 1 applic topical BID 01/17/25 History (Efudex) lisinopril 5 mg tablet 5 mg PO QDAY 01/17/25 History rosuvastatin 5 mg tablet (Crestor) 5 mg PO QDAY 01/17/25 History tiotropium 2.5 mcg-olodaterol 2.5 2 puff inhalation QD AY 01/17/25 01/17/25 History mcg/actuation mist for inhalation (Stiolto Respimat) Allergies Allergy/AdvReac Type Severity Reaction Status Date / Time No Known Allergies Allergy Verified 01/17/25 02:09 Visit Medications Acetaminophen (Acetaminophen 325 Mg Tablet) 650 mg PO Q6H PRN PRN Reason: PAIN SCALE 1-3 (mild Stop: 02/16/25 13:53 Albuterol/Ipratropium (Albuterol/Ipratropium (Duoneb) Rt Jovanna 3 Ml Nebu) 3 ml INH Q2HR PRN PRN Reason: SHORTNESS OF BREATH OR WHEEZE Stop: 02/16/25 13:53 Heparin Sodium (Porcine) (Heparin Sod Inj 5000 Unit/Ml Vial) 5,000 unit SC Q8HR FAWAD Stop: 01/31/25 13:59 Last Admin: 01/17/25 14:11 Dose: 5,000 unit Morphine Sulfate (Morphine Sulf Inj 10 Mg/Ml Vial) 1 mg IVP Q4H PRN PRN Reason: PAIN SCALE 4-10(Mod-Sev Stop: 01/21/25 13:53 Sennosides (Senna Tablet) 1 tab PO QDAY FAWAD; Protocol Stop: 02/17/25 08:59 Discontinued Medications Hydrocodone Bitart/Acetaminophen (Hydrocodone/Apap 5/325 Tablet) 1 tab PO X1 ONE Stop: 01/17/25 10:04 Last Admin: 01/17/25 10:15 Dose: 1 tab Doxycycline Hyclate (Doxycycline 100 Mg Tablet) 100 mg PO X1 ONE Stop: 01/17/25 10:51 Last Admin: 01/17/25 11:15 Dose: 100 mg Hydromorphone HCl (Hydromorphone Inj 2 Mg/Ml Vial) 1 mg IVP X1 ONE Stop: 01/17/25 02:26 Last Admin: 01/17/25 03:02 Dose: 1 mg Sodium Chloride (Ns) 1,000 mls @ 999 mls/hr IV .Q1H1M ONE Stop: 01/17/25 03:25 Last Infusion: 01/17/25 05:26 Dose: Infused Ceftriaxone Sodium/Dextrose (Rocephin/D5w 1gm Iv Premix) 1 gm in 50 mls @ 100 mls/hr IV X1 ONE Stop: 01/17/25 11:19 Last Infusion: 01/17/25 11:45 Dose: Infused Ondansetron HCl (Ondansetron Inj 2 Mg/Ml Inj 2 Ml) 4 mg IVP X1 ONE; Protocol Stop: 01/17/25 02:26 Last Admin: 01/17/25 03:01 Dose: 4 mg Ondansetron HCl (Ondansetron Inj 2 Mg/Ml Inj 2 Ml) 4 mg IVP X1 ONE; Protocol Stop: 01/17/25 07:26 Last Admin: 01/17/25 09:07 Dose: Not Given Assessment & Plan Plan Mr. Zavala is a 74-year-old male with past medical history significant for hypertension, hyperlipidemia, COPD, PTSD, history of DVT in the right lower extremity and history of right hip surgery in 2022 was brought in by ambulance due to severe back pain for the past 3 days. #Intractable back pain, in the setting of #Chronic osteoporosis and advanced degenerative disease #Spondylolithiasis #Severe osteopenia - Per patient has had chronic back pain which has caused him to have recurrent falls recently. Patient had a fall last week however no fractures were found on imaging patient has progressively worsened. For the past 3 days patient has been unable to move or get out of bed. Prior to the fall patient was able to use a cane or walker to get around the house. -CT of lumbar spine: Severe osteopenia, Chronic osteoporotic wedging L3, L4, Advanced degenerative disc disease L5-S1, L5-S1 grade 1 spondylolisthesis producing severe left and mild right L5, ganglionic compression, L4-L5 3 mm central lumbar disc bulge CT thoracic spine: No acute thoracic fracture. Mild diffuse thoracic degenerative disc disease. -There is no evidence of urinary or fecal incontinence Plan: - Pain management is ordered with Tylenol and morphine - Will avoid Dilaudid as patient received dose of Dilaudid which decreased his respiratory drive in the ED. - Will get PT evaluation tomorrow and will consider SNF placement if family is agreeable - Patient follows Dr. Munoz outpatient #History of primary hypertension #History of hyperlipidemia - Patient's home medications include lisinopril and rosuvastatin - Patient's blood pressure is within normal limits therefore will hold antihypertensives - Med rec pending #Hx of COPD #Nicotine dependence - Patient has a history of chronic smoking is an active smoker -Smokes half a pack of cigarettes daily since the age of 11 -Per patient's he currently uses 2 inhalers but does not use home oxygen Plan: - Supplemental oxygen as needed -Nicotine patch ordered -DuoNebs as needed #BPH - CT of the abdomen pelvis showed significant prostamegaly with early signs of urinary tract outflow obstruction however per ED physician patient does not exhibit signs of urinary retention and was able to collect urine for urinalysis. Per patient's patient has not had any difficulty with urination. - Will order bladder ultrasound to determine urinary retention #History of DVT, right lower extremity -Per patient has a history of DVT for which he was prescribed apixaban 5 mg twice daily however patient has stopped taking that medication several weeks ago -Currently there is no signs of DVT -Heparin SC ordered for DVT prophylaxis #History of PTSD -Per pt has history of PTSD however he does not take any medications Health Maintenance Disposition: Med tele for intractable pain DVT Prophylaxis: Heparin 5000 units SC Q8 hrs GI Prophylaxis: not indicated at this time Diet: regular diet after Pt passes nurse swallow screen Lines: Peripheral lines Code status: Full Assessment and plan discussed with my senior resident Dr. Edwards & attending physician Dr. Long Bledsoe (PGY-1)- Internal medicine resident Attending Provider Attestation/Addendum Face to face evaluation was performed by me. I have personally seen and examined the patient. I discussed the assessment and plan with the entire medicine team. I reviewed available medical records, imaging studies, laboratory results. I agree with the above subjective data, objective findings, assessment and plan except as corrected by me or noted below Intractable lower back pain Right hip pain, chronic Spondylolisthesis of the lumbar region Osteopenia Hypertension History of systemic anticoagulation use?apixaban - Admit for pain control - Imaging studies so far no acute fractures - Considering group home facility/rehabilitation discharge - PT?therapy -Trying to Investigate anticoagulation indication and need for continuation- More than > 30 minutes spent on the encounter
[2025-01-17] MEDS: NICOTINE PATCH 14 MG/24 HR PATCH.TD24 TOP (18:22)
[2025-01-18] VITALS (8 sets, daily range): BP systolic 140–165; BP diastolic 77–93; PULSE 60–96; RESP 18–20; TEMP 36.1–36.3; O2SAT 95–99
[2025-01-18] MEDS: HEPARIN SOD INJ 5000 UNIT/ML VIAL SC ×2 (05:09→13:26)
[2025-01-18 05:30] LABS: Basophils # (Auto) 0.1 Thou/mm3 (0.0-0.2); Basophils % (Auto) 1 % (0-2.5); Eosinophils # (Auto) 0.1 Thou/mm3 (0.0-0.5); Eosinophils % (Auto) 2 % (0-10); Hematocrit 36.7 % (41.0-53.0); Hemoglobin 12.4 g/dL (13.5-16.0); Immature Granulocytes % (Auto) 0 % (0-0); Immature Granulocytes Auto 0.01 Thou/mm3 (0.00-0.00); Lymphocytes # (Auto) 1.1 Thou/mm3 (1.0-4.8); Lymphocytes % (Auto) 16 % (10-50); Mean Corpuscular HGB Conc 33.8 g/dl (31.0-37.0); Mean Corpuscular Hemoglobin 31.2 pg (25.0-35.0); Mean Corpuscular Volume 92 fL (80-100); Monocytes # (Auto) 0.5 Thou/mm3 (0.0-0.8); Monocytes % (Auto) 7 % (0-12); Neutrophils # (Auto) 5.1 Thou/mm3 (1.8-7.7); Neutrophils % (Auto) 75 % (37-80); Nucleated Red Blood Cell % 0 /100 WBC (0); Platelet Count 232 Thou/mm3 (140-440); RDW Standard Deviation 45.1 fL (35.1-43.9); Red Blood Count 3.97 Miln/mm3 (4.50-5.90); White Blood Count 6.9 Thou/mm3 (3.8-10.6)
[2025-01-18 05:59] LABS: Alanine Aminotransferase < 7 U/L (10-49); Albumin, Serum 3.4 gm/dL (3.4-4.8); Albumin/Globulin Ratio 1.4 (1.2-2.2); Alkaline Phosphatase 80 U/L (46-116); Anion Gap 11 (7-16); Aspartate Amino Transferase 13 U/L (0-34); BUN/Creatinine Ratio 14 Ratio (12-20); Bilirubin,Total 0.9 mg/dL (0.3-1.2); Blood Urea Nitrogen 11 mg/dL (9-23); Calcium 8.2 mg/dL (8.3-10.6); Calcium (Corrected) 8.7 mg/dL (8.5-10.1); Carbon Dioxide 27.3 mMol/L (20.0-31.0); Chloride 105 mMol/L (98-107); Creatinine (Component) 0.8 mg/dL (0.6-1.3); Estimated Creatinine Clearance 59.5 mL/min (>60); Globulin 2.4 gm/dL (2.3-3.5); Glucose 67 mg/dL (74-106); Magnesium 1.8 mg/dL (1.6-2.6); Osmolality,Calculated 282 (275-295); Phosphorous 2.8 mg/dL (2.4-5.1); Potassium 3.9 mMol/L (3.4-5.1); Sodium 143 mMol/L (136-145); Total Protein 5.8 gm/dL (5.7-8.2); eGFR > 60 See Note
--- NOTE | 2025-01-18 09:19 | PC.SS ---
Follow up note: PT evaluation is pending. Pt is on mitten due to attempting to pull out his IV lines. Pt is possible SNF placement. Per bedside nurse, Blaire pt is not on Physic meds, anxiety, or depression meds.
[2025-01-18] MEDS: NICOTINE PATCH 14 MG/24 HR PATCH.TD24 TOP (10:05)
[2025-01-18] MEDS: SENNA TABLET 1 TAB PO (10:05)
--- NOTE | 2025-01-18 15:11 | PC.SS ---
RETAIL SUPPORT SPECIALIST provided updated from [facility] staff that patient is 80% connected to [facility]. Patient eligible for home based services. [facility] staff to provide RETAIL SUPPORT SPECIALIST with patient's [facility] social services once obtained. RETAIL SUPPORT SPECIALIST updated conservation planner.
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
--- NOTE | 2025-01-18 16:56 | ESPR_ITS ---
<Statement entered by Celeste Edwards MD - 01/19/25 06:06> Patient was seen and examined by me personally. I have directly supervised and reviewed documentation by the team resident and agree with its findings with any exceptions or additional findings as below. Plan of care was discussed with the attending, Dr. Alves. Chris Zavala is a 74-year-old male with past medical history of hypertension, hyperlipidemia, COPD, PTSD, history of DVT in the right lower extremity and history of right hip surgery in 2022 who was brought in by ambulance on 01/17/2025 due to severe back pain for the past 3 days. Overnight had agitation requiring restraints. PT eval pending for final recommendations for SNF versus home health, will then follow up with regarding decision for disposition. Celeste Edwards, PGY-2 Documentation for date of: 01/18/25 Subjective Subjective Interval history: Overnight team reported patient was agitated and pulling lines therefore soft mittens were ordered. Patient seen and examined at bedside this morning. Patient is still confused and is only alert to himself and is able to state his full name only. Patient is agitated and is pulling lines have pulled his IV line despite soft mittens being present. Will order soft restraints bilaterally. Unable to confirm if the patient is taking any of his medications at home as is a poor historian and not at bedside. PT eval is ordered however will likely not get done as patient is agitated and on soft restraints. Will continue to monitor for improvement in mentation. Vitals are stable labs are within normal limits. Exam Vital Signs Temp Pulse Resp BP Pulse Ox O2 Del Method O2 Flow Rate 97.2 F 96 18 155/89 H 95 Nasal Cannula 2 01/18/25 16:00 01/18/25 16:00 01/18/25 16:01/18/25 16:00 01/18/25 16:01/18/25 16:01/18/25 16:00 Narrative Exam GENERAL: A&Ox1 . elderly male, Awake, saturating on room air, soft mittens present bilaterally NEURO: unable to asses due to pt's mentation HEENT: Atraumatic, Normocephalic. mucous membranes moist. Eyes open, symmetrical, & clear HEART: Normal Heart Sounds LUNGS: Clear to auscultation with no wheezing or crackles. ABDOMEN: soft, non-distended, non-tender, bowel sounds heard, no guarding or rebound tenderness SKIN: No Rash or ecchymoses EXTREMITIES: No edema, tenderness is present on palpation on right hip area, able to move all 4 extremities, pedal pulses palpated Objective Labs 01/19/25 04:50 01/19/25 04:50 Labs: Laboratory Results - last 24 hr 01/18/25 04:32 WBC 6.9 RBC 3.97 L Hgb 12.4 L Hct 36.7 L MCV 92 MCH 31.2 MCHC 33.8 RDW Std Deviation 45.1 H Plt Count 232 Neut % (Auto) 75 Lymph % (Auto) 16 [place] % (Auto) 7 Eos % (Auto) 2 Baso % (Auto) 1 Neut # (Auto) 5.1 Lymph # (Auto) 1.1 [place] # (Auto) 0.5 Eos # (Auto) 0.1 Baso # (Auto) 0.1 Immature Gran # (Auto) 0.01 H Absolute Nucleated RBC 0.00 Immature Gran % 0 Nucleated RBC % 0 Sodium 143 Potassium 3.9 Chloride 105 Carbon Dioxide 27.3 Anion Gap 11 BUN 11 Creatinine 0.8 Estim Creat Clear Calc 59.5 L eGFR > 60 BUN/Creatinine Ratio 14 Glucose 67 L Calculated Osmolality 282 Calcium 8.2 L Corrected Calcium 8.7 Phosphorus 2.8 Magnesium 1.8 Total Bilirubin 0.9 AST 13 ALT < 7 L Alkaline Phosphatase 80 Total Protein 5.8 Albumin 3.4 D Globulin 2.4 Albumin/Globulin Ratio 1.4 Quality Measures Quality Measures none Advance care planning discussed with:: spouse Assessment & Plan Assessment Current Active Medications: Generic Name Dose Route Start Last Admin Trade Name Freq PRN Reason Stop Dose Admin Acetaminophen 650 mg 01/17/25 13:54 Acetaminophen 325 Mg Tablet PO 02/16/25 13:53 Q6H PRN PAIN SCALE 1-3 (mild Albuterol/Ipratropium 3 ml 01/17/25 13:54 Albuterol/Ipratropium (Duoneb) Rt Jovanna 3 Ml Nebu INH 02/16/25 13:53 Q2HR PRN SHORTNESS OF BREATH OR WHEEZE Heparin Sodium (Porcine) 5,000 unit 01/17/25 14:00 01/18/25 13:26 Heparin Sod Inj 5000 Unit/Ml Vial SC 01/31/25 13:59 5,000 unit Q8HR FAWAD Administration Morphine Sulfate 1 mg 01/17/25 13:54 Morphine Sulf Inj 10 Mg/Ml Vial IVP 01/21/25 13:53 Q4H PRN PAIN SCALE 4-10(Mod-Sev Nicotine 14 mg 01/17/25 17:45 01/18/25 10:05 Nicotine Patch 14 Mg/24 Hr Patch.Td24 TOP 02/16/25 17:44 14 mg QDAY FAWAD Administration Sennosides 1 tab 01/18/25 09:00 01/18/25 10:05 Senna Tablet PO 02/17/25 08:59 1 tab QDAY FAWAD Administration Protocol Plan Mr. Zavala is a 74-year-old male with past medical history significant for hypertension, hyperlipidemia, COPD, PTSD, history of DVT in the right lower extremity and history of right hip surgery in 2022 was brought in by ambulance due to severe back pain for the past 3 days. #Intractable back pain, in the setting of #Chronic osteoporosis and advanced degenerative disease #Spondylolithiasis #Severe osteopenia - Per patient has had chronic back pain which has caused him to have recurrent falls recently. Patient had a fall last week however no fractures were found on imaging patient has progressively worsened. For the past 3 days patient has been unable to move or get out of bed. Prior to the fall patient was able to use a cane or walker to get around the house. -CT of lumbar spine: Severe osteopenia, Chronic osteoporotic wedging L3, L4, Advanced degenerative disc disease L5-S1, L5-S1 grade 1 spondylolisthesis producing severe left and mild right L5, ganglionic compression, L4-L5 3 mm central lumbar disc bulge CT thoracic spine: No acute thoracic fracture. Mild diffuse thoracic degenerative disc disease. -There is no evidence of urinary or fecal incontinence Plan: - Pain management is ordered with Tylenol and morphine - Will avoid Dilaudid as patient received dose of Dilaudid which decreased his respiratory drive in the ED. - Will get PT evaluation tomorrow and will consider SNF placement if family is agreeable - Patient follows Dr. Munoz outpatient #History of primary hypertension #History of hyperlipidemia - Patient's home medications include lisinopril and rosuvastatin - Patient's blood pressure is within normal limits therefore will hold antihypertensives - Med rec pending #Hx of COPD #Nicotine dependence - Patient has a history of chronic smoking is an active smoker -Smokes half a pack of cigarettes daily since the age of 11 -Per patient's he currently uses 2 inhalers but does not use home oxygen Plan: -Supplemental oxygen as needed -Nicotine patch ordered -DuoNebs as needed #BPH - CT of the abdomen pelvis showed significant prostamegaly with early signs of urinary tract outflow obstruction however per ED physician patient does not exhibit signs of urinary retention and was able to collect urine for urinalysis. Per patient's patient has not had any difficulty with urination. - Will order bladder ultrasound to determine urinary retention #History of Hip surgery, right #History of DVT, right lower extremity -Per patient has a history of DVT for which he was prescribed apixaban 5 mg twice daily however patient has stopped taking that medication several weeks ago -Currently there is no signs of DVT -Heparin SC ordered for DVT prophylaxis #History of PTSD -Per pt has history of PTSD however he does not take any medications Health Maintenance Disposition: Med tele for intractable pain DVT Prophylaxis: Heparin 5000 units SC Q8 hrs GI Prophylaxis: not indicated at this time Diet: regular diet after Pt passes nurse swallow screen Lines: Peripheral lines Code status: Full Assessment and plan discussed with my senior resident Dr. Edwards & attending physician Dr. Long Bledsoe (PGY-1)- Internal medicine resident Attending Provider Attestation/Addendum Face to face evaluation was performed by me. I have personally seen and examined the patient. I discussed the assessment and plan with the entire medicine team. I reviewed available medical records, imaging studies, laboratory results. I agree with the above subjective data, objective findings, assessment and plan except as corrected by me or noted below Intractable lower back pain Right hip pain, chronic Spondylolisthesis of the lumbar region Osteopenia Hypertension History of systemic anticoagulation use?apixaban - Admit for pain control - Imaging studies so far no acute fractures - PT?therapy - Looks like is considering taking him home with home health and family care Looks like he does not need to be on full dose of anticoagulation with apixaban?maybe lower dose 2.5 mg twice daily for VTE prophylaxis-for completely stopping with More than > 30 minutes spent on the encounter
[2025-01-18] MEDS: QUEtiapine FUMARATE 25 MG TABLET 50 MG PO (21:08)
[2025-01-19] VITALS (7 sets, daily range): BP systolic 128–167; BP diastolic 73–95; PULSE 68–84; RESP 16–17; TEMP 36–36.4; O2SAT 90–96; BMI 11.0
[2025-01-19 05:36] LABS: Basophils # (Auto) 0.1 Thou/mm3 (0.0-0.2); Basophils % (Auto) 1 % (0-2.5); Eosinophils # (Auto) 0.2 Thou/mm3 (0.0-0.5); Eosinophils % (Auto) 2 % (0-10); Hematocrit 41.6 % (41.0-53.0); Hemoglobin 13.8 g/dL (13.5-16.0); Immature Granulocytes % (Auto) 0 % (0-0); Immature Granulocytes Auto 0.02 Thou/mm3 (0.00-0.00); Lymphocytes # (Auto) 1.2 Thou/mm3 (1.0-4.8); Lymphocytes % (Auto) 18 % (10-50); Mean Corpuscular HGB Conc 33.2 g/dl (31.0-37.0); Mean Corpuscular Hemoglobin 31.1 pg (25.0-35.0); Mean Corpuscular Volume 94 fL (80-100); Monocytes # (Auto) 0.6 Thou/mm3 (0.0-0.8); Monocytes % (Auto) 10 % (0-12); Neutrophils # (Auto) 4.5 Thou/mm3 (1.8-7.7); Neutrophils % (Auto) 69 % (37-80); Nucleated Red Blood Cell % 0 /100 WBC (0); Platelet Count 252 Thou/mm3 (140-440); RDW Standard Deviation 44.5 fL (35.1-43.9); Red Blood Count 4.44 Miln/mm3 (4.50-5.90); White Blood Count 6.6 Thou/mm3 (3.8-10.6)
[2025-01-19] MEDS: HEPARIN SOD INJ 5000 UNIT/ML VIAL SC (05:50)
[2025-01-19 06:06] LABS: Alanine Aminotransferase < 7 U/L (10-49); Albumin, Serum 3.8 gm/dL (3.4-4.8); Albumin/Globulin Ratio 1.5 (1.2-2.2); Alkaline Phosphatase 86 U/L (46-116); Anion Gap 12 (7-16); Aspartate Amino Transferase 15 U/L (0-34); BUN/Creatinine Ratio 16 Ratio (12-20); Blood Urea Nitrogen 14 mg/dL (9-23); Calcium 8.7 mg/dL (8.3-10.6); Calcium (Corrected) 8.9 mg/dL (8.5-10.1); Carbon Dioxide 32.1 mMol/L (20.0-31.0); Chloride 102 mMol/L (98-107); Creatinine (Component) 0.9 mg/dL (0.6-1.3); Estimated Creatinine Clearance 52.9 mL/min (>60); Globulin 2.6 gm/dL (2.3-3.5); Glucose 91 mg/dL (74-106); Magnesium 1.8 mg/dL (1.6-2.6); Osmolality,Calculated 291 (275-295); Phosphorous 2.2 mg/dL (2.4-5.1); Potassium 3.6 mMol/L (3.4-5.1); Sodium 146 mMol/L (136-145); Total Protein 6.4 gm/dL (5.7-8.2); eGFR > 60 See Note
[2025-01-19] MEDS: NICOTINE PATCH 14 MG/24 HR PATCH.TD24 TOP (09:10)
[2025-01-19] MEDS: SENNA TABLET 1 TAB PO (09:10)
--- NOTE | 2025-01-19 09:34 | PC.SS ---
Late note 01-18-25: Pt is alert but confused. SS spoke to regarding patient's dc plan. Pt was admitted for Intractable Back Pain. confirmed demographic and contact information is correct on facesheet. Patient's home address is: [address] [place] [address]. Pt resides with . Pt ambulates using a 4 wheel with seat, rollator walker. Pt requires assistance with all ADLs. , Verenice Zavala is patient's medical decision maker. SS provided verbal options for d/c to home or SNF. refused pt to go to SNF. 's choice is for pt to return home upon d/c with HH. SS provided verbal choices for HH and 's choice is [facility]. Per , pt has had [facility] in the past. states she can provide transportation home. states pt followed up with PCP 1 month ago. D/C plan: Return home Address: [id number] [place], [place] [address] [address] Next of Kin: Verenice Zavala, , phone# [phone] [facility] [place] [facility]: [facility]
--- NOTE | 2025-01-19 16:02 | PC.SS ---
SS met to inform her PT worked with patient and PT is recommending SNF. refused SNF placement for pt. 's choice is for pt to return pt home. Kristian from PT explained is requesting a hospital bed. SS provided with [employer] [facility]. does not have preference for DME company. SS has sent DME order for hospital bed using [facility]. states she will provide transportation home and has a wheelchair for pt. Bedside nurseMarissa is aware
--- NOTE | 2025-01-19 16:39 | PD.RESDS ---
Planned Discharge Date 01/19/25 DS: Providers Provider Date of admission: 01/17/25 13:49 Primary care physician: Gonzalez Zuniga MD Admitting Provider: Aron Alves MD Attending Provider on Admission: Nery Mckee MD Consults: 01/19/25 09:46 Referral Physical Therapy Routine Comment: Physician Instructions: Attending Provider on DC: Ajay Bledsoe MD Discharging Provider: Ajay Bledsoe MD DS: Diagnosis Problem List Completed Was Problem List Reviewed/Reconciled?: Yes Hospital Course Hospital Course Hospital course: Mr. Zavala is a 74-year-old male with past medical history significant for hypertension, hyperlipidemia, COPD, PTSD, history of DVT in the right lower extremity after right hip surgery in 2022 was brought to [facility] ED by ambulance on 01/17/25 due to severe back pain for the past 3 days after ground-level fall. CT of the head was negative for acute hemorrhage, mass effect or midline shift. CT of the lumbar and thoracic spine as well as CT of chest abdomen pelvis were done which showed no fractures but chronic osteoporosis and advanced degenerative disease as well as spondylolithiasis as well as severe osteopenia which was causing patient intractable back pain. Patient was admitted to the hospital for IV pain meds. During hospitalization patient became increasingly agitated which resolved however patient was always very confused and only oriented to self. Per this appears to be patient's baseline. Per patient was bedbound for several days prior to coming into the hospital due to worsening back pain. Patient does follow with orthopedic surgeon Dr. Munoz outpatient. During hospitalization physical therapy evaluation was ordered which recommended patient to be at a rehab center however patient's refused therefore patient will be sent home with home health. Patient has remained hemodynamically stable and is no longer agitated and is at his baseline and ready to be discharged home with home health. Patient is recommended to follow-up with his orthopedic surgeon Dr. Munoz outpatient for further management of his back pain. Patient is advised if his symptoms worsen or return to probably return to the ED. Discharge Recommendations -Follow up outpatient with primary care with in 1 week -Your apixiban is held because you have history of provoke DVT (deep vein thrombosis) in lower extremity which would require 3 to 6 months of anticoagulation and you have taken it for more than 6 months, therefore please follow up with your primary care to decide if you need to continue it or not. -Follow up with orthopedic surgeon Dr. Munoz within 1 week to further discuss your back pain. -Continue all other medications as directed -Return to the Emergency Department if your symptoms return or worsen Hospitalization Diagnosis #Intractable back pain, in the setting of #Chronic osteoporosis and advanced degenerative disease #Spondylolithiasis #Severe osteopenia #History of primary hypertension #History of hyperlipidemia #Hx of COPD #Nicotine dependence #BPH #History of Hip surgery, right #History of DVT, right lower extremity #History of PTSD Assessment and plan discussed with my attending physician Dr. Rylee Bledsoe (PGY-1)- Internal medicine resident Time Spent with Patient Time attestation: Total time spent providing and/or coordinating discharge services: Time spent: Greater than 30 minutes Home Health Home Health Referral Orders: 01/19/25 13:17 Home Health Referral Routine Reason For Exam: back pain, confusion Home-Bound The patient must either because of illness or injury, need the aid of supportive devices such as crutches, canes, wheelchairs, and walkers; the use of special transportation; or the assistance of another person in order to leave their place of residence; OR have a condition such that leaving his or her home is medically contraindicated. In addition, the patient also meets the following criteria: patient is normally unable to leave the home and leaving home requires considerable taxing effort. Addendum to Home Health Certification Practitioner's Certification: I certify that the patient has been under my care in the hospital and the care of attending physician (see below). We had a [id number] encounter on (see date below). My clinical findings indicate that the patient is home bound per the above criteria and the Home Health Services noted in these orders are medically necessary. The primary reason for the [id number] encounter is related to the fact that the patient requires home health services. Date Certifying [id number] Physician Encounter: 01/17/25 Physician's Name who will Assume Oversight for Services: Gonzalez Zuniga Physician's Phone No.who will Assume Oversight for Service: SHIRRING MACHINE OPERATOR - Community Resources: No PT to Evaluate: Yes PT to evaluate and provide a treatmnet plan to increase patient's mobility and strength. Wound Care: No IV Therapy: No RN Safety Evaluation: Yes RN to evaluate and create a plan of care that will produce positive outcomes. Palliative Treatment: No Palliative treatment and evaluate the need for hospice. Home Health Aide - Personal Care: No Home Health Aide to assist with any ADL's. Exam Vital Signs Temp Pulse Resp BP Pulse Ox O2 Del Method O2 Flow Rate 96.8 F 70 16 160/82 H 94 L Room Air 2 01/19/25 16:00 01/19/25 16:01/19/25 16:01/19/25 16:01/19/25 16:01/19/25 16:00 01/19/25 06:48 Discharge Plan Plan Patient Disposition: Home w/HOME HEALTH Care Plan Goals: -Follow up outpatient with primary care with in 1 week -Your apixiban is held because you have history of provoke DVT (deep vein thrombosis) in lower extremity which would require 3 to 6 months of anticoagulation and you have taken it for more than 6 months, therefore please follow up with your primary care to decide if you need to continue it or not. -Follow up with orthopedic surgeon Dr. Munoz within 1 week to further discuss your back pain. -Continue all other medications as directed -Return to the Emergency Department if your symptoms return or worsen Prescriptions/Referrals Prescriptions/Med Rec: Continued rosuvastatin [Crestor] 5 mg tablet 5 mg PO QDAY lisinopril 5 mg tablet 5 mg PO QDAY Stiolto Respimat 2.5-2.5 mcg/actuation mist 2 puff inhalation QDAY fluorouracil [Efudex] 5 % cream 1 applic topical BID albuterol sulfate 90 mcg/actuation HFA aerosol inhaler 2 puff INHALATION Q6H PRN (Reason: shortness of breath or wheezing) Patient Comments: INHALE 1 PUFF BY MOUTH EVERY 4 HOURS NEEDED FOR SHORTNESS OF BREATH FOR WHEEZING FOR COUGH SPELLS Held apixaban 5 mg tablet 5 mg PO BID Hold Instructions: Resume on 02/02/25. Pt has history of provoked DVT and has completed anticoagulation for more than 6 months. Will hold until Pt sees his primary care for further decision on resuming it. Referrals: Gonzalez Zuniga MD [Primary Care Provider] - Patient/Caregiver Discharge Instructions Education Materials: ED DEMENTIA Alzheimer's, ED Degenerative Disk Disease, ED CAREGIVER SUPPORT for DEMENTIA, ED Pain Management: Chronic Print Language: Malay Stand Alone Forms: Arabella Award Info., Patient Portal Info Letter Discharge Order Discharge Orders: Discharge (Routine); Ordered 01/19/25 Ordered By: Ajay Bledsoe Quality Discharge Quality Measures VTE prophylaxis MD Attestestation MD Attestation I attest that I was physically present for the evaluation, physical examination, lab and imaging review of the patient with the residents. I discussed the case with the residents and agree with the findings and plans of care as documented above. Nery Mckee MD
--- NOTE | 2025-01-20 09:13 | PC.CC ---
Complete HH orders sent via [facility], awaiting responses at this time.
--- NOTE | 2025-01-20 10:50 | PC.SS ---
Ss has spoken to Oanh from [facility] and informed her pt has d/c and requesting hospital bed. SS has faxed DME order to [facility], per Oanh's request.
--- NOTE | 2025-01-21 09:05 | PC.CC ---
Addendum entered by Azael Rosenbaum RN 01/21/25 18:12: Per Jada on [employer], Brittany received auth from [place]. Start of care date is 01/22/25. Addendum entered by Azael Rosenbaum RN 01/21/25 09:36: Jada from [facility] responded on [employer] [facility] . Addendum entered by Azael Rosenbaum RN 01/21/25 09:06: Reached out to [facility] for start of care date. Pending response. Original Note: [facility] accepted the pt and it was booked by [facility] transfer nurse. Pending start of care date.
== END 2025-01-19 18:33 | disposition home health service (06) | DRG 551 ==
LOC: SERX 11:18 → SERHOLD 14:06 → S3SX 16:24
PROVIDERS: Emergency Medicine; Admitting Provider Internal Medicine; Emergency Provider Emergency Medicine; PCP Family Medicine; Visit Provider Student in an Organized Health Care Education/Training Program
DX: M47.16 Other spondylosis with myelopathy, lumbar region (principal); J18.9 Pneumonia, unspecified organism; J44.0 Chronic obstructive pulmonary disease with (acute) lower respiratory infection; F03.C11 Unspecified dementia, severe, with agitation; F43.10 Post-traumatic stress disorder, unspecified; E78.5 Hyperlipidemia, unspecified; I10 Essential (primary) hypertension; M51.370 Other intervertebral disc degeneration, lumbosacral region with discogenic back pain only; I27.21 Secondary pulmonary arterial hypertension; M43.17 Spondylolisthesis, lumbosacral region; Z86.718 Personal history of other venous thrombosis and embolism; F17.210 Nicotine dependence, cigarettes, uncomplicated; G89.29 Other chronic pain; M81.0 Age-related osteoporosis without current pathological fracture; M51.34 Other intervertebral disc degeneration, thoracic region; N40.0 Benign prostatic hyperplasia without lower urinary tract symptoms; Z74.01 Bed confinement status; Z78.1 Physical restraint status; Z87.81 Personal history of (healed) traumatic fracture; Z79.01 Long term (current) use of anticoagulants
CPT/HCPCS: 36415; 70450; 71250; 72128; 72131; 74176; 80053; 81001; 82150; 82248; 83690; 83735; 84100; 84439; 84443; 85025; 87040; 93005; 96361; 96365; 96372; 96375; 97162; 99285; J0696; J1171; J1644; J2405; J7030; A9270

== ENCOUNTER 2025-07-08 12:47 | Emergency (ER) | payer OTHER, SELFPAY ==
[2025-07-08 12:54] VITALS: BP 170/85; PULSE 71; RESP 16; TEMP 36.4; O2SAT 91
[2025-07-08 13:04] VITALS: PULSE 78; RESP 20; BMI 18.1
[2025-07-08 13:09] VITALS: BP 190/126; PULSE 82; RESP 18; TEMP 36.7; O2SAT 94
--- NOTE | 2025-07-08 13:43 | PD.EDFALL ---
ED Fall Injury RME/HPI General Chief Complaint: Fall Stated Complaint: FALL Time Seen by Provider: 07/08/25 13:04 Arrival date/time: 07/08/25 12:47 RME / HPI RME / HPI Narrative: 75 year old male with history of dementia presents to the ED BIBA from home for evaluation after fall that occurred 2 days ago. sates the patient fell while trying to get out of bed with assistance of his walker. However, lost balance and fell, striking his back on a piece of furniture 2 days ago. Today noted a very large bruise to his back with some bleed streaks. The additionally reports 1-2 weeks ago the patient while smoking outside had felt dizzy and light headed. No other concerns or complaints reported. Related Data Home Medications ?Medication ?Instructions ?Recorded ?Confirmed albuterol sulfate 90 mcg/actuation 2 puff inhalation Q6H PRN 11/05/22 01/17/25 aerosol inhaler shortness of breath or wheezing apixaban 5 mg tablet 5 mg PO BID 01/17/25 01/17/25 Held on 01/19/25. Instructions: Resume on 02/02/25. Pt has history of provoked DVT and has completed anticoagulation for more than 6 months. Will hold until Pt sees his primary care for further decision on resuming it. fluorouracil 5 % topical cream 1 applic topical BID 01/17/25 01/17/25 (Efudex) lisinopril 5 mg tablet 5 mg PO QDAY 01/17/25 01/17/25 rosuvastatin 5 mg tablet (Crestor) 5 mg PO QDAY 01/17/25 01/17/25 tiotropium 2.5 mcg-olodaterol 2.5 2 puff inhalation QDAY 01/17/25 01/17/25 mcg/actuation mist for inhalation (Stiolto Respimat) Previous Rx's ?Medication ?Instructions ?Recorded lidocaine 5 % topical patch 1 patch topical Q24H PRN pain #15 07/08/25 ea Allergies Allergy/AdvReac Type Severity Reaction Status Date / Time No Known Allergies Allergy Verified 01/17/25 02:09 Review of Systems Review of Systems Systems Reviewed: All systems reviewed, normal except as documented Past Medical History Past Medical History NEUROLOGIC: Positive Dementia CARDIAC: Positive Hypercholesterolemia and Hypertension Social History SMOKING STATUS: Smoker, status unknown ED Exam Narrative Physical exam: Constitutional: Awake, alert, nontoxic, no acute distress HEENT: Normocephalic, atraumatic, extraocular movements intact. Neck: Supple CV: Regular rate and rhythm, no murmurs/rubs/gallops Lungs: Clear to auscultation BL, no respiratory distress. Abd: Soft, NT, ND, no HSM noted to palpation Back: Bruising and hematoma to his lower back with pain Extremities: No deformities, no edema noted Neuro: Awake, alert, CN 2-12 GIBL. Skin: Warm, dry, intact Course Course Course Narrative: 1400h: Patient has a history of significant dementia and is oriented to person only. He is at his baseline mentation. Discussed with patient's regarding workup for this patient with significant exam abnormalities including bruising and hematoma to his lower back with pain. Discussed risks and benefits of more in-depth imaging such as a CT of his back and possibilities moving forward should we find signs of internal bleeding on a CT given the bruising that we are seeing on his back. Patient's notes that he would not want anything aggressive or invasive and would prefer not to have a CT done. Requests simple x-rays to be done and is okay with receiving a dose of pain medication. Patient's x-ray is unremarkable. is okay with taking patient home with symptomatic treatment at this time. Quality Measures none Orders Category Date Time Status XR lumbar spine 2-3V Stat Exams 07/08/25 14:01 Completed Acetaminophen Ivpb [Ofirmev Inj] Med 07/08/25 14:01 Discontinued 1,000 mg in 100 ml IV NOW Morphine* Inj Med 07/08/25 14:02 Discontinued 2 mg IVP NOW ONE Vital Signs Vital signs: Vital Signs Temperature 97.6 F 07/08/25 12:54 Pulse Rate 71 07/08/25 12:54 Respiratory Rate 16 07/08/25 12:54 Blood Pressure 170/85 H 07/08/25 12:54 Pulse Oximetry (%) 91 L 07/08/25 12:54 Oxygen Delivery Method Room Air 07/08/25 12:54 Fall MDM Narrative MDM Narrative:: Brittany Ledezma am scribing for and in the presence of Dr. Smith. Patient data External records reviewed:: [facility] previous records and EMS form Clinical information provided by:: patient, EMS and spouse Social determinants that could affect healthcare access:: other (specify) (Active tobacco smoker) Patient has the following chronic illnesses:: Dementia, COPD, hypertension, hyperlipidemia, history of DVT in the right lower extremity How is presenting disease/condition affected by chronic disease/condition?: uneffected by Evaluation data The following diagnostics were reviewed and interpreted by me:: lab results Lab and/or radiology exams considered but not ordered:: None Interpretation Summary: Ordering Physician: Sierra Smtih MD Date of Service: 07/08/25 Procedure(s): XR lumbar spine 2-3V Accession Number(s): [id number] cc: Shabbir Ching MD; Sierra Smith MD; Gonzalez Zuniga MD~ EXAMINATION: Lumbar spine 3 views TECHNIQUE: AP lateral, lateral lower lumbar spine 3 views Date and time: July 08, 2025, 1428 hours, comparison December 22, 2024 INDICATIONS: Patient fell today with into the lower back, lower back pain. FINDINGS: Severe osteopenia Chronic appearing osteoporotic compression L4, L3 No acute fracture depicted Grade 1 anterolisthesis L5 on S1 Moderate to advanced disc narrowing posteriorly L5-S1 IMPRESSION: No acute lumbar fracture Dictated By: Shabbir Ching MD Signed By: <Electronically signed by Shabbir Ching MD in OV> 07/08/25 1502 Medications / Prescriptions Medications or Prescriptions considered but not ordered:: None Medication administrations:: Medication Administration History Discontinued Medications Acetaminophen (Ofirmev Inj) 1,000 mg in 100 mls @ 250 mls/hr IV NOW ONE Stop: 07/08/25 14:24 Last Infusion: 07/08/25 14:41 Dose: Infused Documented By: Admin: 07/08/25 14:17 Dose: 250 mls/hr Documented By: MUKUND Morphine Sulfate (Morphine Sulf Inj 4 Mg/Ml Vial) 2 mg IVP NOW ONE Stop: 07/08/25 14:03 Last Admin: 07/08/25 14:17 Dose: 2 mg Documented By: EF See above Consultations Consultation(s) initiated? (list below): No Diagnosis Fall Differential Diagnosis: compression fracture and other (hematoma) Most likely diagnosis given after review of the tests above:: Fall Traumatic hematoma of lower back Admission Indicated Admission indicated?: not indicated Explain why admission is indicated or not indicated:: With no condition needing emergent intervention, there was no indication for admission. Admission Request Was there a request for admission?: No Disposition Plan Disposition Plan: Discharge Discharge Attestation Discharge Attestation: The patient and all family members were given an opportunity to ask questions and understood the discharge instructions. Discharge instructions specifically effects, indications for sooner follow up or return to the emergency department, and the expected course of current diagnosis. Patient condition: Stable Discharge Plan Plan Patient Disposition: HOME (Self Care) Patient condition on transfer: Stable Prescriptions/Referrals Prescriptions/Med Rec: New lidocaine 5 % adhesive patch,medicated 1 patch topical Q24H PRN (Reason: pain) Qty: 15 0RF Rx Instructions: leave on most painful area for up to 12 hrs No Action rosuvastatin [Crestor] 5 mg tablet 5 mg PO QDAY lisinopril 5 mg tablet 5 mg PO QDAY apixaban 5 mg tablet 5 mg PO BID Stiolto Respimat 2.5-2.5 mcg/actuation mist 2 puff inhalation QDAY fluorouracil [Efudex] 5 % cream 1 applic topical BID albuterol sulfate 90 mcg/actuation HFA aerosol inhaler 2 puff INHALATION Q6H PRN (Reason: shortness of breath or wheezing) Patient Comments: INHALE 1 PUFF BY MOUTH EVERY 4 HOURS NEEDED FOR SHORTNESS OF BREATH FOR WHEEZING FOR COUGH SPELLS Referrals: Gonzalez Zuniga MD [Primary Care Provider] - In 1 week Problem List Clinical Impression: Fall, Traumatic hematoma of lower back Patient/Caregiver Discharge Instructions Education Materials: Dementia Patients Safety Tips, Dementia Caregiver Tips, ED Mechanical Fall, ED Hematoma Additional Instructions: May use tylenol 1g every 6 hours as needed for pain. May also use lidoderm patches to affected areas as neded for pain. Some general health principles that can help you are the [employer] principles: Nutrition (eat a plant-based diet, avoiding meats in general, avoiding highly processed foods) Exercise (Daily exercise/walks as tolerated) Water (Drink adequate fresh water to maintain hydration, concentrating on water rather than on soda, coffee, tea, juice, etc for hydration) [place] (Spend time - 15-20 minutes or so with skin exposed in the slurry mixer and late evening sun for Vitamin D health benefits) [place] (Avoid alcohol, illicit drugs, caffeinated beverages, smoking, etc) Air (Deep breathing exercises in the early mornings in fresh air) Rest (Adequate rest at night, going to bed a few hours before midnight and avoiding all screens/television/loud music in the time right before going to bed, also avoiding heavy meals just prior to going to bed) Trust in God (Spend time daily in Bible study and prayer - health benefits in contemplation of God's true character) Additional resources that can benefit: [email or web address] [place], look under resources and seminars. Another good website is [email or web address] Print Language: Green[place]ic Stand Alone Forms: [facility]ella Award Info., Patient Portal Info Letter
--- NOTE | 2025-07-08 14:01 | XR_ITS ---
EXAMINATION: Lumbar spine 3 views TECHNIQUE: AP lateral, lateral lower lumbar spine 3 views Date and time: July 08, 2025, 1428 hours, comparison December 22, 2024 INDICATIONS: Patient fell today with into the lower back, lower back pain. FINDINGS: Severe osteopenia Chronic appearing osteoporotic compression L4, L3 No acute fracture depicted Grade 1 anterolisthesis L5 on S1 Moderate to advanced disc narrowing posteriorly L5-S1 IMPRESSION: No acute lumbar fracture
[2025-07-08] MEDS: ACETAMINOPHEN IVPB 1,000 MG/100 ML VIAL 250 MG IV (14:17)
[2025-07-08] MEDS: MORPHINE SULF INJ 4 MG/ML VIAL 2 MG IVP (14:17)
[2025-07-08 14:49] VITALS: BP 167/93; PULSE 77; RESP 17; TEMP 37; O2SAT 95
== END 2025-07-08 16:25 | disposition home or self-care (01) ==
PROVIDERS: Emergency Provider Family Medicine; PCP Family Medicine
DX: S20.229A Contusion of unspecified back wall of thorax, initial encounter (principal); F03.90 Unspecified dementia, unspecified severity, without behavioral disturbance, psychotic disturbance, mood disturbance, and anxiety; S30.0XXA Contusion of lower back and pelvis, initial encounter; W06.XXXA Fall from bed, initial encounter; Y92.238 Other place in hospital as the place of occurrence of the external cause; Z79.01 Long term (current) use of anticoagulants; Z87.891 Personal history of nicotine dependence
CPT/HCPCS: 72100; 96365; 96375; 99283; J0131; J2270

== ENCOUNTER 2025-07-25 17:29 | Emergency (ER) | payer OTHER, SELFPAY ==
[2025-07-25] VITALS (7 sets, daily range): BP systolic 144–185; BP diastolic 89–107; PULSE 78–99; RESP 17–22; TEMP 36.6–36.8; O2SAT 93–99; BMI 19.0
--- NOTE | 2025-07-25 18:13 | PD.EDFALL ---
ED Fall Injury RME/HPI General Chief Complaint: Fall Stated Complaint: FALL Time Seen by Provider: 07/25/25 18:13 Arrival date/time: 07/25/25 17:29 RME / HPI RME / HPI Narrative: Dr. Delgado?s Main ED Evaluation: 75yo severely debilitated male who reportedly had a ground-level fall after he fell backwards while using his walker. No definite head strike, loss of consciousness, or seizure activity. Patient unable to provide sucinct history and is thereby obtained by paramedics, hemodynamically stable en route. Complains primarily of back pain. Related Data Home Medications ?Medication ?Instructions ?Recorded ?Confirmed albuterol sulfate 90 mcg/actuation 2 puff inhalation Q6H PRN 11/05/22 01/17/25 aerosol inhaler shortness of breath or wheezing apixaban 5 mg tablet 5 mg PO BID 01/17/25 01/17/25 Held on 01/19/25. Instructions: Resume on 02/02/25. Pt has history of provoked DVT and has completed anticoagulation for more than 6 months. Will hold until Pt sees his primary care for further decision on resuming it. fluorouracil 5 % topical cream 1 applic topical BID 01/17/25 01/17/25 (Efudex) lisinopril 5 mg tablet 5 mg PO QDAY 01/17/25 01/17/25 rosuvastatin 5 mg tablet (Crestor) 5 mg PO QDAY 01/17/25 01/17/25 tiotropium 2.5 mcg-olodaterol 2.5 2 puff inhalation QDAY 01/17/25 01/17/25 mcg/actuation mist for inhalation (Stiolto Respimat) Previous Rx's ?Medication ?Instructions ?Recorded lidocaine 5 % topical patch 1 patch topical Q24H PRN pain #15 07/08/25 ea Allergies Allergy/AdvReac Type Severity Reaction Status Date / Time No Known Allergies Allergy Verified 07/25/25 17:37 Review of Systems Review of Systems ROS Unobtainable: unobtainable due to mental status Past Medical History Past Medical History NEUROLOGIC: Positive Dementia; Negative Seizures CARDIAC: Positive Hypercholesterolemia and Hypertension; Negative Congestive Heart Failure RESPIRATORY: Negative Chronic Obstructive Pulmonary Disease (COPD) GENITOURINARY: Negative Renal Disease ENDOCRINE: Negative Diabetes Mellitus Type 1 or Diabetes Mellitus Type 2 OTHER HISTORY: Negative Blood Transfusions, Blood Transfusion Reaction or Anesthesia Reactions Social History SMOKING STATUS: Current every day smoker ED Exam Narrative Physical exam: GENERAL APPEARANCE: alert and oriented x 1, complains of lower back pain with audible wheezing noted, cachectic, malnutritioned, in [id number] distress VITALS: All vitals were reviewed and the pulse ox is 95% on room air, which is normal according to my interpretation. HEENT: Normocephalic, atraumatic; pupils equal, round, reactive to light; EOMI; mucous membranes pink, moist; oropharynx clear NECK: Supple. no JVD, no midline tenderness LUNGS: Diffuse wheezing bilaterally, no rales, no rhonchi HEART: Regular rate, regular rhythm; normal S1, S2; no murmurs ABDOMEN: non distended; soft, diffuse tenderness, no peritoneal findings BACK: focal area of edema, discoloration, and slight fluctuance to the midline lower lumbar segment EXTREMITIES: no edema NEUROLOGIC: awake; alert and oriented x1; cranial nerves II-XII grossly intact; no focal sensory or motor deficits SKIN: warm, dry; no rashes; large area of ecchymosis extending from the right flank towards the right lower abdomen Course Course Course Narrative: CXR is ordered to r/o pneumothorax. Quality Measures none Orders Category Date Time Status CT Screening NOW Care 07/25/25 18:23 Completed Consult Training Project Manager NOW Care 07/26/25 00:41 Completed EKG (ED ONLY) *Do not use* NOW Care 07/25/25 18:[address] abdomen pelvis w con Stat Exams 07/25/25 18:[address] cervical spine wo con Stat Exams 07/25/25 18:[address] head/brain wo con Stat Exams 07/25/25 18:[address] lumbar spine wo con Stat Exams 07/25/25 18:20 Completed EKG (ED Only) Stat Exams 07/25/25 18:20 Draft XR chest 1V portable Stat Exams 07/25/25 18:20 Completed Alcohol, Blood Medical Stat Lab 07/25/25 18:34 Completed CBC [CBC] Stat Lab 07/25/25 18:34 Completed CMP [Comprehensive Metabolic Panel] Stat Lab 07/25/25 18:34 Completed Drug Screen,Urine Stat Lab 07/25/25 20:40 Completed Troponin I Stat Lab 07/25/25 18:34 Completed Urinalysis Stat Lab 07/25/25 20:40 Completed Urinalysis, C/S if Indicated Stat Lab 07/25/25 20:40 Completed Albuterol/Ipratr Rt Jovanna [Duoneb Rt Jovanna] Med 07/25/25 18:20 Discontinued 3 ml INH X1 ONE Albuterol/Ipratr Rt Jovanna [Duoneb Rt Jovanna] Med 07/26/25 03:23 Discontinued 3 ml INH X1 ONE Diazepam Inj [Valium Inj] Med 07/25/25 21:39 Discontinued 5 mg IM X1 ONE Diazepam Inj [Valium Inj] Med 07/26/25 03:20 Discontinued 5 mg IVP X1 ONE Folic Acid Inj Med 07/25/25 18:20 Discontinued 1 mg IVP X1 ONE Haloperidol Lactate [Haldol Inj] Med 07/25/25 21:39 Discontinued 10 mg IM X1 ONE Haloperidol Lactate [Haldol Inj] Med 07/25/25 23:42 Discontinued 10 mg IM X1 ONE Haloperidol Lactate [Haldol Inj] Med 07/26/25 03:24 Discontinued 10 mg IM X1 ONE Haloperidol Lactate [Haldol Inj] Med 07/26/25 03:20 Discontinued 10 mg IV X1 ONE Magnesium Sulfate 2 GM Ivpb [Magnesium Sulfate Ivpb] Med 07/25/25 18:20 Discontinued 2 gm in 50 ml IV X1 Midazolam Inj [Versed Inj] Med 07/25/25 19:50 Discontinued 2 mg IVP X1 ONE Morphine* Inj Med 07/25/25 19:51 Discontinued 2 mg IVP X1 ONE Prochlorperazine Inj [Compazine Inj] Med 07/25/25 18:47 Discontinued 5 mg IV X1 ONE Propofol Inj [Diprivan Inj] Med 07/25/25 21:52 Discontinued 200 mg IV X1 ONE Sodium Chloride 0.9% 1000 ml [Ns] 1,000 ml Med 07/25/25 18:20 Discontinued IV 999 mls/hr Thiamine Inj [Vitamin B-1 Inj] Med 07/25/25 18:20 Discontinued 100 mg IVP X1 ONE fentaNYL INJ [Sublimaze Inj] Med 07/25/25 18:47 Discontinued 50 mcg IVP X1 ONE Vital Signs Vital signs: Vital Signs Temperature 98.2 F 07/25/25 17:30 Pulse Rate 90 07/25/25 17:30 Respiratory Rate 17 07/25/25 17:30 Blood Pressure 179/96 H 07/25/25 17:30 Pulse Oximetry (%) 95 07/25/25 17:30 Oxygen Delivery Method Room Air 07/25/25 17:30 Fall MDM Narrative MDM Narrative:: Scribe Attestation: 07/25/25 - Clarissa Ledezma, omi scribing for and in the presence of Dr. Delgado. 75yo severely debilitated male who reportedly had a ground-level fall after he fell backwards while using his walker. No definite head strike, loss of consciousness, or seizure activity. Please see PE findings. Lab markers demonstratd WBC 9.3, Hgb 12.9, normal Plt count, no left shift or bandemia. Chemistries demonstrated elevated Na 147, normal renal function, undetected troponin. UA without evidence of infection. Tox screen positive for opioids, fentanyl, and benzodiazeipines (received in ED). Lumbar spine CT demonstrated evidence of severe osteopenia, spondylolisthesis of L5 and S1, moderate spinal stenosis without acute fracture. CT head which was essentially negative. CT cervical spine without acute fracture. observed for an extended period of time and did require sedation for increasing agitation overtime. No critical processes identifiable at this time. Patient likely unmanageable with advanced dementia and requires periodic sedation. Will consult with health and social care teacher in the morning for potential placement. Patient data External records reviewed:: [facility] previous records (Per chart review, patient was seen here on 07/08/25 for a fall.) and EMS form Clinical information provided by:: EMS Social determinants that could affect healthcare access:: none Patient has the following chronic illnesses:: dementia, COPD, HTN, HLD, history of DVT in the right lower extremity How is presenting disease/condition affected by chronic disease/condition?: uneffected by Evaluation data The following diagnostics were reviewed and interpreted by me:: lab results, radiology exam(s) and EKG tracing(s) Lab and/or radiology exams considered but not ordered:: none Interpretation Summary: EKG done at 1836, aFib, rate of 74, no acute pathological ST changes, evidence of LVH by voltage criteria, left axis deviation, according to my interpretation. [place] [facility] Signed Patient: ELOISEYAYAHilda [facility]ck[facility]. Record#: [id number] Birthdate: 1950 Age/Sex: 75 / M Location: [facility] Attending Dr: Ordering Physician: Ender Gusman DO Date of Service: 07/25/25 Procedure(s): XR chest 1V portable Accession Number(s): [id number] cc: Ender Gusman DO; Shabbir Ching MD; NO PRIMARY/FAMILY,PHYSICIAN~ EXAMINATION: AP chest single view TECHNIQUE: AP portable supine chest single view Date and time: July 25, 2025, 8 hours, comparison November 05, 2022 INDICATIONS: Diagnosis COPD with shortness of breath FINDINGS: Suspicious for mild heart failure Mild enlargement cardiac contour Prominent vascular congestion with small pleural effusions Prominent osteopenia IMPRESSION: Suspicious for mild heart failure Dictated By: Shabbir Ching MD Signed By: <Electronically signed by Shabbir Ching MD in OV> 07/25/25 2018 [place] [facility] Signed Patient: GALEN NAVAS [facility]. Record#: [id number] Birthdate: 1950 Age/Sex: 75 / M Location: [facility] Attending Dr: Ordering Physician: Ender Gusman DO Date of Service: 07/25/25 Procedure(s): CT head/brain wo con Accession Number(s): [id number] cc: Ender Gusman DO; Shabbir Ching MD; NO PRIMARY/FAMILY,PHYSICIAN~ Examination: CT brain head without contrast. 2-D sagittal coronal reconstructions Date and time of exam: July 25, 2025, 2017 hours INDICATIONS: Patient fell today with injury to the head, head pain CTDI: vol (mGy): 69.0 DLP: (mGycm): 1575 Technique: Multiple CT axial sections of the brain have been obtained, 5 mm slice thickness. Contrast has not been administered. 2-D sagittal, coronal reconstructions have been obtained Low dose protocols were performed. One or more of the following dose reduction techniques were used; automated exposure control, adjustment of the mA and/or KV according to patient size, use of iterative reconstruction technique. Findings: No significant ventricular enlargement. Intra-axial or extra-axial hemorrhage density is not seen. No mass effect or midline shift Basal cisterns are not remarkable. Fourth ventricle is midline. Cranial vault intact. Impression: Limited study with extensive artifacts No gross hemorrhage mass effect or midline shift Dictated By: Shabbir Ching MD Signed By: <Electronically signed by Shabbir Ching MD in OV> 07/25/252110 [place] [facility] Signed Patient: GALEN NAVAS [email or web address]. Record#: [id number] Birthdate: 1950 Age/Sex: 75 / M Location: [facility] Attending Dr: Ordering Physician: Ender Gusman DO Date of Service: 07/25/25 Procedure(s): CT cervical spine wo con Accession Number(s): [id number] cc: Ender Gusman DO; Shabbir Ching MD; NO PRIMARY/FAMILY,PHYSICIAN~ Examination: CT cervical spine without contrast 2-D sagittal reconstructions 2-D coronal reconstructions 3-D reconstructions. Exam date and time: July 25, 2025, 2016 hours INDICATIONS: Patient fell today with injury to the neck, neck pain CTDI:vol (mGy) 13.9 DLP: (mGycm) 267 Technique: Multiple 2 mm axial sections of the cervical spine have been obtained. The coronal and sagittal reconstructions have been obtained. 3-D reconstructions have been obtained. Low dose protocols were performed. One or more of the following dose reduction techniques were used; automated exposure control, adjustment of the mA and/or KV according to patient size, use of iterative reconstruction technique. Findings: Axial sections demonstrate intact base of the skull. C1 exhibit satisfactory relationship to the odontoid. No acute cervical vertebral body fracture seen. Alignment posterior spinous processes satisfactory. Impression: No acute cervical fracture. Dictated By: Shabbir Ching MD Signed By: <Electronically signed by Shabbir Ching MD in OV> 07/25/252109 [place] [facility] Signed Patient: GALEN NAVAS [email or web address] Record#: [id number] Birthdate: 1950 Age/Sex: 75 / M Location: [facility] Attending Dr: Ordering Physician: Ender Gusman DO Date of Service: 07/25/25 Procedure(s): CT lumbar spine wo con Accession Number(s): [id number] cc: Ender Gusman DO; Shabbir Ching MD; NO PRIMARY/FAMILY,PHYSICIAN~ Examination: CT lumbar spine, without contrast. 2-D sagittal reconstructions. 2-D coronal reconstructions. 3-D reconstructions. Date and time of exam: July 25, 2025, 2026 hours INDICATIONS: Patient fell today with injury of the lower back, lower back pain CTDI: vol (mGy): 25.7 DLP: (mGycm): 701 Technique: Multiple 1.25 mm axial sections of the lumbar spine including 2D sagittal coronal reconstructions Low dose protocols, dose reduction techniques automated exposure control FINDINGS: Severe osteopenia Grade 1 spondylolisthesis L5 on S1 with advanced disc narrowing posteriorly L5-S1 No acute lumbar fracture L5-S1 moderate bilateral L5 ganglionic compression secondary to the spondylolisthesis L4-L5 moderate overall spinal stenosis, 4 mm central lumbar disc bulge thickening of the ligamentum flavum and facet arthropathy circumferentially narrowing the thecal sac More cephalad levels unremarkable IMPRESSION: No acute lumbar fracture Severe osteopenia L5-S1 moderate bilateral L5 ganglionic compression secondary to the grade 1 spondylolisthesis L4-L5 moderate overall spinal stenosis Dictated By: Shabbir Ching MD Signed By: <Electronically signed by Shabbir Ching MD in OV> 07/25/252112 [place] [facility] Signed Patient: GALEN NAVAS [facility]. Record#: [id number] Birthdate: 1950 Age/Sex: 75 / M Location: [facility] Attending Dr: Ordering Physician: Ender Gusman DO Date of Service: 07/25/25 Procedure(s): CT abdomen pelvis w con Accession Number(s): [id number] cc: Ender Gusman DO; Shabbir Ching MD; NO PRIMARY/FAMILY,PHYSICIAN~ Examination: CT abdomen with intravenous contrast CT pelvis with intravenous contrast 2-D coronal reconstructions 2-D sagittal reconstructions Date and time of exam: July 25, 2025, 2035 hours INDICATIONS: Generalized abdominal pain after falling today. CTDI: vol (mGy) 7.54 DLP: (mGycm): 120 Technique: Multiple axial sections of the abdomen and pelvis have been obtained. 64 slice high-resolution scanner used. 3 mm axial sections have been obtained, post intravenous injection 60 cc Isovue 370 2-D sagittal, coronal reconstructions obtained. Low dose protocols were performed. One or more of the following dose reduction techniques were used; automated exposure control, adjustment of the mA and/or KV according to patient size, use of iterative reconstruction technique. Findings: Minimal right pleural fluid No liver splenic or renal laceration Severe scarring right kidney No perinephric stranding Cholelithiasis Significant gastric mucosal thickening and thickening in the duodenal bulb Aorta intact No free blood in the abdomen Negative for pneumoperitoneum Urinary bladder intact Bilateral inguinal hernias containing colon but no incarcerated bowel Severe osteopenia, please see the CT lumbar spine report IMPRESSION: Minimal right pleural fluid No liver splenic or renal laceration Abdominal aorta intact No free blood in the abdomen or pelvis Bilateral inguinal hernias containing colon but no incarcerated bowel Hips the bones of the pelvis appear intact Dictated By: Shabbir Ching MD Signed By: <Electronically signed by Shabbir Ching MD in OV> 07/25/257 Medications / Prescriptions Medications or Prescriptions considered but not ordered:: none Medication administrations:: Medication Administration History Discontinued Medications Albuterol/Ipratropium (Albuterol/Ipratropium (Duoneb) Rt Jovanna 3 Ml Nebu) 3 ml INH X1 ONE Stop: 07/25/25 18:21 Last Admin: 07/25/25 19:14 Dose: 3 ml Documented By: CG Albuterol/Ipratropium (Albuterol/Ipratropium (Duoneb) Rt Jovanna 3 Ml Nebu) 3 ml INH X1 ONE Stop: 07/26/25 03:24 Last Admin: 07/26/25 03:51 Dose: 3 ml Documented By: CG Diazepam (Diazepam Inj 5 Mg/Ml Vial 2 Ml) 5 mg IM X1 ONE Stop: 07/25/25 21:40 Last Admin: 07/25/25 21:47 Dose: 5 mg Documented By: BD Diazepam (Diazepam Inj 5 Mg/Ml Vial 2 Ml) 5 mg IVP X1 ONE Stop: 07/26/25 03:21 Last Admin: 07/26/25 03:35 Dose: 5 mg Documented By: CHRISTY Fentanyl Citrate (Fentanyl Cit Inj 50 Mcg/Ml Amp 2ml) 50 mcg IVP X1 ONE Stop: 07/25/25 18:48 Last Admin: 07/25/25 18:56 Dose: 50 mcg Documented By: VG Folic Acid (Folic Acid Inj 1 Mg/0.2 Ml) 1 mg IVP X1 ONE Stop: 07/25/25 18:21 Last Admin: 07/25/25 18:49 Dose: 1 mg Documented By: TIANNA Haloperidol Lactate (Haloperidol Lact Inj 5 Mg/Ml Vial) 10 mg IM X1 ONE Stop: 07/25/25 21:40 Last Admin: 07/25/25 21:47 Dose: 10 mg Documented By: YURIDIA Haloperidol Lactate (Haloperidol Lact Inj 5 Mg/Ml Vial) 10 mg IM X1 ONE Stop: 07/25/25 23:43 Last Admin: 07/25/25 23:54 Dose: 10 mg Documented By: SANDOR Haloperidol Lactate (Haloperidol Lact Inj 5 Mg/Ml Vial) 10 mg IV X1 ONE Stop: 07/26/25 03:21 Last Admin: 07/26/25 03:26 Dose: Not Given Documented By: CHRISTY Non-Admin Reason: Cancelled by Provider Haloperidol Lactate (Haloperidol Lact Inj 5 Mg/Ml Vial) 10 mg IM X1 ONE Stop: 07/26/25 03:25 Last Admin: 07/26/25 03:33 Dose: 10 mg Documented By: CHRISTY Sodium Chloride (Ns) 1,000 mls @ 999 mls/hr IV .Q1H1M ONE Stop: 07/25/25 19:20 Last Infusion: 07/25/25 20:57 Dose: Infused Documented By: Admin: 07/25/25 18:47 Dose: 999 mls/hr Documented By: TIANNA Magnesium Sulfate (Magnesium Sulfate Ivpb) 2 gm in 50 mls @ 25 mls/hr IV X1 ONE Stop: 07/25/25 20:19 Last Infusion: 07/25/25 23:31 Dose: Infused Documented By: Admin: 07/25/25 18:49 Dose: 25 mls/hr Documented By: VG Midazolam HCl (Midazolam Inj 1 Mg/Ml Vial 2 Ml) 2 mg IVP X1 ONE Stop: 07/25/25 19:51 Last Admin: 07/25/25 20:03 Dose: 2 mg Documented By: SANDOR Morphine Sulfate (Morphine Sulf Inj 4 Mg/Ml Vial) 2 mg IVP X1 ONE Stop: 07/25/25 19:52 Last Admin: 07/25/25 20:01 Dose: 2 mg Documented By: SANDOR Prochlorperazine Edisylate (Prochlorperazine Inj 5 Mg/Ml Vial 2 Ml) 5 mg IV X1 ONE; Protocol Stop: 07/25/25 18:48 Last Admin: 07/25/25 18:57 Dose: 5 mg Documented By: TIANNA Propofol (Propofol Inj 10 Mg/Ml Vial 20 Ml) 200 mg IV X1 ONE Stop: 07/25/25 21:53 Last Admin: 07/25/25 22:32 Dose: Not Given Documented By: SANDOR Non-Admin Reason: Cancelled by Provider Thiamine HCl (Thiamine Inj 100 Mg/Ml Vial 2 Ml) 100 mg IVP X1 ONE Stop: 07/25/25 18:21 Last Admin: 07/25/25 18:48 Dose: 100 mg Documented By: TIANNA see above Consultations Consultation(s) initiated? (list below): No Diagnosis Fall Differential Diagnosis: other (fracture, dislocation, contusion) Most likely diagnosis given after review of the tests above:: see clinical impression below Admission Indicated Admission indicated?: not indicated Admission Request Was there a request for admission?: No Disposition Plan Disposition Plan: other (specify) (Signed out to the next oncoming provider at 0600 pending health and social care teacher consultation.) Discharge Plan Plan Patient Disposition: HOME (Self Care) Prescriptions/Referrals Prescriptions/Med Rec: No Action rosuvastatin [Crestor] 5 mg tablet 5 mg PO QDAY lisinopril 5 mg tablet 5 mg PO QDAY apixaban 5 mg tablet 5 mg PO BID Stiolto Respimat 2.5-2.5 mcg/actuation mist 2 puff inhalation QDAY fluorouracil [Efudex] 5 % cream 1 applic topical BID albuterol sulfate 90 mcg/actuation HFA aerosol inhaler 2 puff INHALATION Q6H PRN (Reason: shortness of breath or wheezing) Patient Comments: INHALE 1 PUFF BY MOUTH EVERY 4 HOURS NEEDED FOR SHORTNESS OF BREATH FOR WHEEZING FOR COUGH SPELLS lidocaine 5 % adhesive patch,medicated 1 patch topical Q24H PRN (Reason: pain) Qty: 15 0RF Rx Instructions: leave on most painful area for up to 12 hrs Referrals: No Primary/Family,Physician [Primary Care Provider] - In 1 week Problem List Clinical Impression: Fall, Dementia Patient/Caregiver Discharge Instructions Education Materials: Dementia Caregiver Tips Additional Instructions: Continue current home management. Print Language: Turkmen Stand Alone Forms: [facility] Award Info., Patient Portal Info Letter
--- NOTE | 2025-07-25 18:20 | EKG_ITS ---
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
--- NOTE | 2025-07-25 18:20 | XR_ITS ---
Examination: CT lumbar spine, without contrast. 2-D sagittal reconstructions. 2-D coronal reconstructions. 3-D reconstructions. Date and time of exam: July 25, 2025, 2026 hours INDICATIONS: Patient fell today with injury of the lower back, lower back pain CTDI: vol (mGy): 25.7 DLP: (mGycm): 701 Technique: Multiple 1.25 mm axial sections of the lumbar spine including 2D sagittal coronal reconstructions Low dose protocols, dose reduction techniques automated exposure control FINDINGS: Severe osteopenia Grade 1 spondylolisthesis L5 on S1 with advanced disc narrowing posteriorly L5-S1 No acute lumbar fracture L5-S1 moderate bilateral L5 ganglionic compression secondary to the spondylolisthesis L4-L5 moderate overall spinal stenosis, 4 mm central lumbar disc bulge thickening of the ligamentum flavum and facet arthropathy circumferentially narrowing the thecal sac More cephalad levels unremarkable IMPRESSION: No acute lumbar fracture Severe osteopenia L5-S1 moderate bilateral L5 ganglionic compression secondary to the grade 1 spondylolisthesis L4-L5 moderate overall spinal stenosis
--- NOTE | 2025-07-25 18:20 | XR_ITS ---
EXAMINATION: AP chest single view TECHNIQUE: AP portable supine chest single view Date and time: July 25, 2025, 1828 hours, comparison November 05, 2022 INDICATIONS: Diagnosis COPD with shortness of breath FINDINGS: Suspicious for mild heart failure Mild enlargement cardiac contour Prominent vascular congestion with small pleural effusions Prominent osteopenia IMPRESSION: Suspicious for mild heart failure
--- NOTE | 2025-07-25 18:20 | XR_ITS ---
Examination: CT brain head without contrast. 2-D sagittal coronal reconstructions Date and time of exam: July 25, 20252016 hours INDICATIONS: Patient fell today with injury to the head, head pain CTDI: vol (mGy): 69.0 DLP: (mGycm): 1575 Technique: Multiple CT axial sections of the brain have been obtained, 5 mm slice thickness. Contrast has not been administered. 2-D sagittal, coronal reconstructions have been obtained Low dose protocols were performed. One or more of the following dose reduction techniques were used; automated exposure control, adjustment of the mA and/or KV according to patient size, use of iterative reconstruction technique. Findings: No significant ventricular enlargement. Intra-axial or extra-axial hemorrhage density is not seen. No mass effect or midline shift Basal cisterns are not remarkable. Fourth ventricle is midline. Cranial vault intact. Impression: Limited study with extensive artifacts No gross hemorrhage mass effect or midline shift
--- NOTE | 2025-07-25 18:20 | XR_ITS ---
Examination: CT cervical spine without contrast 2-D sagittal reconstructions 2-D coronal reconstructions 3-D reconstructions. Exam date and time: July 25, 20252016 hours INDICATIONS: Patient fell today with injury to the neck, neck pain CTDI:vol (mGy) 13.9 DLP: (mGycm) 267 Technique: Multiple 2 mm axial sections of the cervical spine have been obtained. The coronal and sagittal reconstructions have been obtained. 3-D reconstructions have been obtained. Low dose protocols were performed. One or more of the following dose reduction techniques were used; automated exposure control, adjustment of the mA and/or KV according to patient size, use of iterative reconstruction technique. Findings: Axial sections demonstrate intact base of the skull. C1 exhibit satisfactory relationship to the odontoid. No acute cervical vertebral body fracture seen. Alignment posterior spinous processes satisfactory. Impression: No acute cervical fracture.
--- NOTE | 2025-07-25 18:20 | XR_ITS ---
Examination: CT abdomen with intravenous contrast CT pelvis with intravenous contrast 2-D coronal reconstructions 2-D sagittal reconstructions Date and time of exam: July 25, 2025, 2035 hours INDICATIONS: Generalized abdominal pain after falling today. CTDI: vol (mGy) 7.54 DLP: (mGycm): 120 Technique: Multiple axial sections of the abdomen and pelvis have been obtained. 64 slice high-resolution scanner used. 3 mm axial sections have been obtained, post intravenous injection 60 cc Isovue 370 2-D sagittal, coronal reconstructions obtained. Low dose protocols were performed. One or more of the following dose reduction techniques were used; automated exposure control, adjustment of the mA and/or KV according to patient size, use of iterative reconstruction technique. Findings: Minimal right pleural fluid No liver splenic or renal laceration Severe scarring right kidney No perinephric stranding Cholelithiasis Significant gastric mucosal thickening and thickening in the duodenal bulb Aorta intact No free blood in the abdomen Negative for pneumoperitoneum Urinary bladder intact Bilateral inguinal hernias containing colon but no incarcerated bowel Severe osteopenia, please see the CT lumbar spine report IMPRESSION: Minimal right pleural fluid No liver splenic or renal laceration Abdominal aorta intact No free blood in the abdomen or pelvis Bilateral inguinal hernias containing colon but no incarcerated bowel Hips the bones of the pelvis appear intact
--- NOTE | 2025-07-25 18:30 | PC.NURSE ---
xray at bedside.
[2025-07-25 18:40] LABS: Basophils # (Auto) 0.1 Thou/mm3 (0.0-0.2); Basophils % (Auto) 1 % (0-2.5); Eosinophils # (Auto) 0.1 Thou/mm3 (0.0-0.5); Eosinophils % (Auto) 1 % (0-10); Hematocrit 41.1 % (41.0-53.0); Hemoglobin 12.9 g/dL (13.5-16.0); Immature Granulocytes Auto 0.10 Thou/mm3 (0.00-0.00); Lymphocytes # (Auto) 1.2 Thou/mm3 (1.0-4.8); Lymphocytes % (Auto) 13 % (10-50); Mean Corpuscular HGB Conc 31.4 g/dl (31.0-37.0); Mean Corpuscular Hemoglobin 30.3 pg (25.0-35.0); Mean Corpuscular Volume 97 fL (80-100); Monocytes # (Auto) 0.5 Thou/mm3 (0.0-0.8); Monocytes % (Auto) 6 % (0-12); Neutrophils # (Auto) 7.3 Thou/mm3 (1.8-7.7); Neutrophils % (Auto) 79 % (37-80); Nucleated Red Blood Cell # 0.00 Thou/mm3 (0.00-0.00); Nucleated Red Blood Cell % 0 /100 WBC (0); Platelet Count 272 Thou/mm3 (140-440); RDW Standard Deviation 47.4 fL (35.1-43.9); Red Blood Count 4.26 Miln/mm3 (4.50-5.90); White Blood Count 9.3 Thou/mm3 (3.8-10.6)
--- NOTE | 2025-07-25 18:40 | PC.NURSE ---
RT called for ordered breathing treatment.
[2025-07-25] MEDS: SODIUM CHLORIDE 0.9% 1000 ML 1,000 ML 999 ML IV (18:47)
[2025-07-25] MEDS: THIAMINE INJ 100 MG/ML VIAL 2 ML IVP (18:48)
[2025-07-25] MEDS: FOLIC ACID INJ 1 MG/0.2 ML IVP (18:49)
[2025-07-25] MEDS: Magnesium Sulfate 2 GM Ivpb 2 GM/50 ML BAG IV (18:49)
[2025-07-25] MEDS: fentaNYL CIT INJ 50 mCg/ML AMP 2ML IVP (18:56)
[2025-07-25] MEDS: PROCHLORPERAZINE INJ 5 MG/ML VIAL 2 ML IV (18:57)
[2025-07-25] MEDS: ALBUTEROL/IPRATROPIUM (Duoneb) RT SOL 3 ML NEBU INH (19:14)
[2025-07-25 19:39] LABS: Alanine Aminotransferase 14 U/L (10-49); Albumin, Serum 4.6 gm/dL (3.4-4.8); Albumin/Globulin Ratio 1.5 (1.2-2.2); Alcohol, Blood Medical < 3.0 mg/dL (0-10.0); Alkaline Phosphatase 94 U/L (46-116); Anion Gap 9 (7-16); Aspartate Amino Transferase 17 U/L (0-34); BUN/Creatinine Ratio 15 Ratio (12-20); Bilirubin,Total 1.0 mg/dL (0.3-1.2); Blood Urea Nitrogen 15 mg/dL (9-23); Calcium 9.5 mg/dL (8.3-10.6); Calcium (Corrected) 9.5 mg/dL (8.5-10.1); Carbon Dioxide 33.2 mMol/L (20.0-31.0); Chloride 105 mMol/L (98-107); Creatinine (Component) 1.0 mg/dL (0.6-1.3); Estimated Creatinine Clearance 49.6 mL/min (>60); Globulin 3.0 gm/dL (2.3-3.5); Glucose 99 mg/dL (74-106); Osmolality,Calculated 293 (275-295); Potassium 3.9 mMol/L (3.4-5.1); Sodium 147 mMol/L (136-145); Total Protein 7.6 gm/dL (5.7-8.2); Troponin I < 0.020 ng/mL (0.0-0.045); eGFR > 60 See Note
[2025-07-25] MEDS: MORPHINE SULF INJ 4 MG/ML VIAL 2 MG IVP (20:01)
[2025-07-25] MEDS: MIDAZOLAM INJ 1 MG/ML VIAL 2 ML 2 MG IVP (20:03)
[2025-07-25 21:15] LABS: Collection Type, Urine Catheter; Squamous Epithelial Cell,Urine 0 /hpf (0-5)
[2025-07-25 21:32] LABS: Bilirubin,Urine Negative (Negative); Blood,Urine Negative (Negative); Clarity,Urine Clear (Clear/Hazy); Color,Urine Lt-Yellow (Lt Yel-Yel); Culture Indicated,Urine Not Indicated; Glucose, Urine Negative (Negative); Hyaline Casts,Urine < 1 /hpf (0-1); Ketones,Urine Trace (Negative); Leukocyte Esterase,Urine Negative (Negative); Nitrite,Urine Negative (Negative); PH,Urine 6.0 (5.0-7.0); Protein,Urine Trace (Neg - Trace); RBC,Urine 7 /hpf (0-3); Specific Gravity,Urine 1.025 (1.001-1.035); Urobilinogen,Urine Negative mg/dL (0.0-1.0); WBC,Urine 4 /hpf (0-5)
[2025-07-25 21:33] LABS: Amphetamine/Methamp Scrn,U Negative (Negative); Barbiturate Screen,Urine Negative (Negative); Benzodiazepines Screen,Urine Positive (Negative); Benzoylecgonine Screen, Ur Negative (Negative); Fentanyl Screen,Urine Positive (Negative); Opiate Screen,Urine Positive (Negative); THC Screen,Urine Negative (Negative)
[2025-07-25] MEDS: DIAZEPAM INJ 5 MG/ML VIAL 2 ML IM (21:47)
[2025-07-25] MEDS: HALOPERIDOL LACT INJ 5 MG/ML VIAL 10 MG IM ×2 (21:47→23:54)
[2025-07-26 01:44] VITALS: PULSE 110; RESP 18; O2SAT 95
[2025-07-26] MEDS: HALOPERIDOL LACT INJ 5 MG/ML VIAL 10 MG IM (03:33)
[2025-07-26] MEDS: DIAZEPAM INJ 5 MG/ML VIAL 2 ML IVP (03:35)
[2025-07-26 03:36] VITALS: BP 169/92; PULSE 84; RESP 18; O2SAT 100
[2025-07-26 03:51] VITALS: PULSE 72; RESP 20; O2SAT 100
[2025-07-26] MEDS: ALBUTEROL/IPRATROPIUM (Duoneb) RT SOL 3 ML NEBU INH (03:51)
[2025-07-26 04:54] VITALS: BP 125/68; PULSE 68; RESP 17; TEMP 37; O2SAT 100
--- NOTE | 2025-07-26 07:00 | PD.EDADDENDU ---
Emergency Room Addendum Addendum Narrative: 0600: Care assumed from Dr. Gusman, the previous shift emergency physician. Past medical, surgical, social and family history reviewed. Vitals and home medications reviewed. I will assume the care of the patient at this time, pending hospital social worker consultation and final disposition. Please refer to the emergency department record for history and examination from initial visit.?The following addendum documentation note is intended to reflect any pending information, findings, or radiology results not included in the patient?s initial chart. learning services coordinator has met with the patient. States due to his insurance, he does not qualify for SNF placement. State they spoke with patients family and they are in agreement with sending the patient back home. During my watch, the patient has remained stable.
[2025-07-26 07:03] VITALS: BP 118/80; PULSE 79; RESP 17; O2SAT 90
--- NOTE | 2025-07-26 07:58 | PC.SS ---
Addendum entered by Nadege Purvis 07/26/25 09:42: SS follow up note; SS contacted patient's , Nicol and updated her on ETA. Addendum entered by Nadege Purvis 07/26/25 09:28: SS follow up note; SS was contacted by [employer] and ETA was set for 10:30AM. SS will contact Patient's , Nicol to provide ETA. Addendum entered by Nadege Purvis 07/26/25 08:40: SS contacted patient's , Nicol to provide SNF choices. Nicol informed SS that the would like patient to discharge back home. Patient's , spoke to patient's son, Tima and they decided home would be a better option, however would like SS to transport patient back home. Patient does not have [facility] transport. Family unable to provide payment at the time. SS contacted [facility]. [facility] informed SS they would contact SS back with ETA. Original Note: SS follow up note; SS was informed by patient's nurse, Ranjit that patient's son would like SNF placement. SS informed Ranjit PT order would be needed for auth. SS sent SNF inquiry through [employer] platform. SS attempted to contact family on face sheet, however no answer, SS left VM with SS Contact information. SS will stand by for further needs.
[2025-07-26 08:33] VITALS: BP 152/92; PULSE 98; RESP 19; TEMP 36.4; O2SAT 95
== END 2025-07-26 11:12 | disposition home or self-care (01) ==
PROVIDERS: Emergency Provider Emergency Medicine
DX: S19.9XXA Unspecified injury of neck, initial encounter (principal); S09.90XA Unspecified injury of head, initial encounter; S39.92XA Unspecified injury of lower back, initial encounter; F03.90 Unspecified dementia, unspecified severity, without behavioral disturbance, psychotic disturbance, mood disturbance, and anxiety; I10 Essential (primary) hypertension; E78.00 Pure hypercholesterolemia, unspecified; F17.210 Nicotine dependence, cigarettes, uncomplicated; K40.20 Bilateral inguinal hernia, without obstruction or gangrene, not specified as recurrent; M85.88 Other specified disorders of bone density and structure, other site; M43.17 Spondylolisthesis, lumbosacral region; M48.07 Spinal stenosis, lumbosacral region; R06.02 Shortness of breath; I48.91 Unspecified atrial fibrillation; W18.30XA Fall on same level, unspecified, initial encounter
CPT/HCPCS: 36415; 70450; 71045; 72125; 72131; 74177; 80053; 80307; 80320; 81001; 84484; 85025; 93005; 94640; 96365; 96366; 96372; 96375; 99285; A4649; A9270; J0780; J1630; J2250; J2270; J3010; J3360; J3411; J3475; J3490; J7030; Q9967; G0480